=== PATIENT | male | born 1930 | race Caucasian/White ===

== ENCOUNTER 2016-12-23 10:52 | Inpatient (IN) | payer OTHER, MEDICARE ==
[2016-12-23] VITALS (12 sets, daily range): BP systolic 131–184; BP diastolic 64–90; PULSE 31–37; RESP 16–18; TEMP 97.5–98.1; O2SAT 96–100
[~2016-12-23] VITALS: Ht 182.9 cm; Wt 86.1 kg
[~2016-12-23 10:52] MED LIST: AMLO5 PO; APIX5 PO; ASPI81TA11 PO; COQ130CA4 PO; FURO20 PO; IMDU60TA PO; KCL10 PO; LISI-363 PO; METO50CR PO; PRAV40 PO; VITATAB11 PO; [UNRECOGNIZED DRUG - REMARK]
[2016-12-23] MEDS ORDERED: VITATAB11 (11:26)
[2016-12-23] MEDS ORDERED: LATA0.002 EACH EYE (11:26)
[2016-12-23] MEDS ORDERED: FURO20TA PO (11:26)
[2016-12-23] MEDS ORDERED: XARE20TA PO (11:26)
[2016-12-23] MEDS ORDERED: ISOS60TA PO (11:26)
[2016-12-23] MEDS ORDERED: LISI-515 PO (11:26)
[2016-12-23] MEDS ORDERED: LOVA40TA PO (11:26)
[2016-12-23] MEDS ORDERED: COQ-30CA2 PO (11:26)
[2016-12-23] MEDS ORDERED: METO50TA11 PO (11:26)
--- NOTE | 2016-12-23 11:41 | PD ---
HPI Chief Complaint: Cardiac Complaint Time Seen by Provider: 11:15 Travel History International Travel<30 days: No Contact w/Intl Traveler<30days: No Traveled to known affect area: No History of Present Illness HPI 85yo M with PMH of CAD s/p CABG, afib on xarelto was sent here by his PMD for bradycardia. Pt went to his PMD for routine check up and heart rate was 31. Pt 's pals specialist is Dr. Gross and had afib with slow ventricular rate in the 40s last year. Pt denies any fever, cough, chest pain, sob, n/v, abdominal pain , focal weakness or numbness. Pt's only new medication was latanoprost opth drops 2 weeks ago. Pt is on metoprolol 50mg daily and took it this morning. PFSH Past Medical History Hx Anticoagulant Therapy: Yes (xarelto) Arthritis: Yes Blood Disorders: No Cancer: Yes (skin cancer) Cardiac Catheterization: Yes Cardiovascular Problems: Yes (bypass; htn) High Cholesterol: No Chest Pain: Yes Coronary Artery Disease: Yes Diabetes: No Diminished Hearing: Yes Endocrine: No Gastrointestinal Disorders: Yes (gerd,inguinal hernia) GERD: Yes Genitourinary: No Hypertension: Yes Immune Disorder: No Implanted Vascular Access Dvce: Yes Musculoskeletal: Yes Neurologic: No Psychiatric: No Reproductive: No Respiratory: No Tetanus Vaccination: > 5 Years Influenza Vaccination: Yes Past Surgical History Cardiac Surgery: Yes (CABG) Joint Replacement: Yes (bilateral hips) Tonsillectomy: Yes Other Surgery: Yes Social History Alcohol Use: Yes (OCCASSIONAL WINE) Tobacco Use: No Substance Use: No Allergies-Medications (Allergen,Severity, Reaction): Coded Allergies: No Known Allergies (Verified , 12/23/16) Reported Meds & Prescriptions Reported Meds & Active Scripts Active Reported Vitamin B Complex (B-Complex Vitamins) 1 Tab Xarelto (Rivaroxaban) 20 Mg Tab 20 Mg PO DAILY Metoprolol Succinate ER 24 HR (Metoprolol Succinate) 50 Mg Tab 50 Mg PO DAILY Lovastatin 40 Mg Tab 40 Mg PO DAILY Lisinopril 20 Mg Tab 20 Mg PO DAILY Latanoprost Opth Drops (Latanoprost) 0.005% Drops 1 Drop EACH EYE HS Refrigerate until opened. Isosorbide Mononitrate ER (Isosorbide Mononitrate) 60 Mg Tab 60 Mg PO DAILY Furosemide 20 Mg Tab 20 Mg PO DAILY Coq-10 (Coenzyme Q10 (Ubidecarenone)) 30 Mg Cap 10 Mg PO DAILY Review of Systems Except as stated in HPI: all other systems reviewed are Neg Physical Exam Narrative GENERAL: 85yo M not in distress. SKIN: Focused skin assessment warm/dry. HEAD: Atraumatic. Normocephalic. EYES: Pupils equal and round. No scleral icterus. No injection or drainage. ENT: No nasal bleeding or discharge. Mucous membranes pink and moist. NECK: Trachea midline. No JVD. CARDIOVASCULAR: HR 32bpm. Irregular. No murmur. RESPIRATORY: No accessory muscle use. Clear to auscultation. Breath sounds equal bilaterally. GASTROINTESTINAL: Abdomen soft, non-tender, nondistended. MUSCULOSKELETAL: No obvious deformities. No clubbing. No cyanosis. +Bilateral lower ext edema. NEUROLOGICAL: Awake and alert. No obvious cranial nerve deficits. Motor grossly within normal limits. Normal speech. PSYCHIATRIC: Appropriate mood and affect; insight and judgment normal. Data Data Last Documented VS Vital Signs Date Time Temp Pulse Resp B/P Pulse Ox O2 Delivery O2 Flow Rate FiO2 12/23/16 11:13 32 18 100 Room Air 12/23/16 10:54 97.5 184/83 Orders Complete Blood Count With Diff (12/23/16 11:32) Basic Metabolic Panel (Bmp) (12/23/16 11:32) Potassium Chloride (Kcl) (12/23/16 12:45) Magnesium (Mg) (12/23/16 12:36) Place In Observation (12/23/16 ) Code Status (12/23/16 12:55) Vital Signs (Adult) Q4H (12/23/16 12:55) Activity Oob With Assistance (12/23/16 12:55) Traffic Control Supervisor / Telemetry .CONTINUOUS (12/23/16 12:55) Diet Heart Healthy (12/23/16 Lunch) Sodium Chloride 0.9% Flush (Ns Flush) (12/23/16 13:00) Sodium Chloride 0.9% Flush (Ns Flush) (12/23/16 21:00) Acetaminophen (Tylenol) (12/23/16 13:00) Ondansetron Inj (Zofran Inj) (12/23/16 13:00) Basic Metabolic Panel (Bmp) (12/24/16 06:00) Case Management Consult (12/23/16 12:55) Scd Bilateral/Knee High ERIN.BID (12/23/16 12:55) Chago Bilateral/Knee High ERIN.QSHIFT (12/23/16 12:55) Acetaminophen (Tylenol) (12/23/16 13:00) Naloxone Inj (Narcan Inj) (12/23/16 13:00) Admit Order (Ed Use Only) (12/23/16 12:57) Labs Laboratory Tests Test 12/23/16 11:20 White Blood Count 5.5 TH/MM3 Red Blood Count 4.22 MIL/MM3 Hemoglobin 13.3 GM/DL Hematocrit 39.2 % Mean Corpuscular Volume 93.0 FL Mean Corpuscular Hemoglobin 31.4 PG Mean Corpuscular Hemoglobin 33.8 % Concent Red Cell Distribution Width 14.5 % Platelet Count 136 TH/MM3 Mean Platelet Volume 9.9 FL Neutrophils (%) (Auto) 66.6 % Lymphocytes (%) (Auto) 19.7 % Monocytes (%) (Auto) 8.9 % Eosinophils (%) (Auto) 3.6 % Basophils (%) (Auto) 1.2 % Neutrophils # (Auto) 3.7 TH/MM3 Lymphocytes # (Auto) 1.1 TH/MM3 Monocytes # (Auto) 0.5 TH/MM3 Eosinophils # (Auto) 0.2 TH/MM3 Basophils # (Auto) 0.1 TH/MM3 CBC Comment DIFF FINAL Differential Comment Sodium Level 140 MEQ/L Potassium Level 3.3 MEQ/L Chloride Level 101 MEQ/L Carbon Dioxide Level 27.5 MEQ/L Anion Gap 12 MEQ/L Blood Urea Nitrogen 13 MG/DL Creatinine 1.18 MG/DL Estimat Glomerular Filtration 59 ML/MIN Rate Random Glucose 147 MG/DL Calcium Level 8.6 MG/DL Magnesium Level 2.1 MG/DL MDM Medical Decision Making Medical Screen Exam Complete: Yes Emergency Medical Condition: Yes Interpretation(s) EKG: Afib at 32bpm. LAD. Differential Diagnosis Afib with low ventricular rate vs. beta yelitza toxicity vs. electrolyte abnormality Narrative Course 85yo M with bradycardia in the low 30s. This is lower than his usual rate. I discussed with Dr. Gross who recommends monitoring him overnight and holding his beta yelitza. Recommend to consult cardiology if he does not get better. Labs reviewed, no leukocytosis. K: 3.3, replaced orally with 40mEq KCl. Added magnesium. Discussed with Dr. Rojas and accepted to his care. Critical Care Narrative Aggregate critical care time was 40 minutes. Time to perform other separately billable procedures was not included in the critical care time. My time did not include minutes spent treating any other patients simultaneously or on activities that did not directly contribute to the patient's treatment. The services I provided to this patient were to treat and/or prevent clinically significant deterioration that could result in: cardiovascular collapse or . I provided critical care services requiring my management, as noted below: Chart data review, documentation time, medication orders and management, vital sign assessments/reviewing monitor data, ordering and reviewing lab tests, ordering and interpreting/reviewing x-rays and diagnostic studies, care of the patient and discussion of the patient with the admitting physicians. Diagnosis Primary Impression: Bradycardia Admitting Information Admitting Physician Requests: Destinee Benítez DO December 23, 2016 11:40
[2016-12-23 12:05] LABS: AUTOMATED NEUTROPHIL # 3.7 TH/MM3 (1.8-7.7); BASOPHIL # 0.1 TH/MM3 (0-0.2); BASOPHIL % 1.2 % (0.0-2.0); EOSINOPHIL # 0.2 TH/MM3 (0-0.4); EOSINOPHIL % 3.6 % (0.0-4.0); HEMATOCRIT 39.2 % (39.0-51.0); HEMO FLAGS DIFF FINAL; LYMPH % 19.7 % (9.0-44.0); LYMPHOCYTE # 1.1 TH/MM3 (1.0-4.8); MEAN CORPUSCULAR HEMOGLOBIN 31.4 PG (27.0-34.0); MEAN CORPUSCULAR HGB CONC 33.8 % (32.0-36.0); MONO % 8.9 % (0.0-8.0); NEUT % 66.6 % (16.0-70.0); PLATELET COUNT 136 TH/MM3 (150-450); RED BLOOD COUNT 4.22 MIL/MM3 (4.50-5.90); RED CELL DISTRIBUTION WIDTH 14.5 % (11.6-17.2); WHITE BLOOD COUNT 5.5 TH/MM3 (4.0-11.0)
[2016-12-23 12:17] LABS: BICARBONATE 27.5 MEQ/L (21.0-32.0); POTASSIUM 3.3 MEQ/L (3.5-5.1)
[2016-12-23] MEDS ORDERED: POTASSIUM CHLORIDE 20 MEQ CONTROLLED RELEASE TAB PO ONE (12:45)
[2016-12-23] MEDS ORDERED: NALOXONE HCL 0.4 MG/ML AMP IV PRN (13:00)
[2016-12-23] MEDS ORDERED: SODIUM CHLORIDE 0.9% FLUSH 10 ML FLUSH IV FLUSH PRN (13:00)
[2016-12-23] MEDS ORDERED: ACETAMINOPHEN 325 MG TAB PO PRN ×2 (13:00)
[2016-12-23] MEDS ORDERED: ONDANSETRON HCL 4 MG/2 ML VIAL IVP PRN (13:00)
--- NOTE | 2016-12-23 13:44 | HHI.HP ---
[facility], [place] Primary Care Physician Rosendo Brown MD Admission Diagnosis Bradycardia Diagnoses: (1) Bradycardia Chief Complaint: HR into the 30's Travel History International Travel<30 Days: No Contact w/Intl Traveler <30 Da: No Traveled to Known Affected Are: No History of Present Illness 85-year-old male with known history of CAD status post CABG who in his regular office visit with his PCP was noted to have Heart rate was around 30s. Patient is on beta yelitza and was also started on an eye drop within the past few weeks. He was sent over to the ED by PCP for further evaluation. He denies any chest pain, shortness of breath or heart palpitation. He has no GI bleed. Review of Systems Other 12 systems reviewed and are negative except for the one mentioned in history of present illness Past Family Social History Past Medical History CAD status post CABG in 1992 Hypertension Hyperlipidemia Past Surgical History Status post CABG in 1992 Bilateral hip replacement left, right in 1999 and 2000. Reported Medications Vitamin B Complex (B-Complex Vitamins) 1 Tab Xarelto (Rivaroxaban) 20 Mg Tab 20 Mg PO DAILY Metoprolol Succinate ER 24 HR (Metoprolol Succinate) 50 Mg Tab 50 Mg PO DAILY Lovastatin 40 Mg Tab 40 Mg PO DAILY Lisinopril 20 Mg Tab 20 Mg PO DAILY Latanoprost Opth Drops (Latanoprost) 0.005% Drops 1 Drop EACH EYE HS Refrigerate until opened. Isosorbide Mononitrate ER (Isosorbide Mononitrate) 60 Mg Tab 60 Mg PO DAILY Furosemide 20 Mg Tab 20 Mg PO DAILY Coq-10 (Coenzyme Q10 (Ubidecarenone)) 30 Mg Cap 10 Mg PO DAILY Allergies: Coded Allergies: No Known Allergies (Verified , 12/23/16) Family History Not relevant secondary to patient's age Social History Alcohol Use: Yes (OCCASSIONAL WINE) Tobacco Use: No Substance Use: No Physical Exam Vital Signs Vital Signs Date Time Temp Pulse Resp B/P Pulse Ox O2 Delivery O2 Flow Rate FiO2 12/23/16 13:09 31 18 167/75 98 Room Air 12/23/16 11:13 32 18 100 Room Air 12/23/16 10:54 97.5 32 18 184/83 99 Physical Exam GENERAL: This is a well-nourished, well-developed patient, in no apparent distress. SKIN: No rashes, ecchymoses or lesions. Cool and dry. HEAD: Atraumatic. Normocephalic. No temporal or scalp tenderness. EYES: Pupils equal round and reactive. Extraocular motions intact. No scleral icterus. No injection or drainage. ENT: Nose without bleeding, purulent drainage or septal hematoma. Throat without erythema, tonsillar hypertrophy or exudate. Uvula midline. Airway patent. NECK: Trachea midline. No JVD or lymphadenopathy. Supple, nontender, no meningeal signs. CARDIOVASCULAR: Regular rate and rhythm without murmurs, gallops, or rubs. RESPIRATORY: Clear to auscultation. Breath sounds equal bilaterally. No wheezes , rales, or rhonchi. GASTROINTESTINAL: Abdomen soft, non-tender, nondistended. No hepato-splenomegaly , or palpable masses. No guarding. MUSCULOSKELETAL: Extremities without clubbing, cyanosis, or edema. No joint tenderness, effusion, or edema noted. No calf tenderness. Negative Homans sign bilaterally. NEUROLOGICAL: Awake and alert. Cranial nerves II through XII intact. Motor and sensory grossly within normal limits. Five out of 5 muscle strength in all muscle groups. Normal speech. Laboratory Laboratory Tests Test 12/23/16 11:20 White Blood Count 5.5 Red Blood Count 4.22 Hemoglobin 13.3 Hematocrit 39.2 Mean Corpuscular Volume 93.0 Mean Corpuscular Hemoglobin 31.4 Mean Corpuscular Hemoglobin 33.8 Concent Red Cell Distribution Width 14.5 Platelet Count 136 Mean Platelet Volume 9.9 Neutrophils (%) (Auto) 66.6 Lymphocytes (%) (Auto) 19.7 Monocytes (%) (Auto) 8.9 Eosinophils (%) (Auto) 3.6 Basophils (%) (Auto) 1.2 Neutrophils # (Auto) 3.7 Lymphocytes # (Auto) 1.1 Monocytes # (Auto) 0.5 Eosinophils # (Auto) 0.2 Basophils # (Auto) 0.1 CBC Comment DIFF FINAL Differential Comment Sodium Level 140 Potassium Level 3.3 Chloride Level 101 Carbon Dioxide Level 27.5 Anion Gap 12 Blood Urea Nitrogen 13 Creatinine 1.18 Estimat Glomerular Filtration 59 Rate Random Glucose 147 Calcium Level 8.6 Magnesium Level 2.1 Result Diagram: 12/23/16 1120 12/23/16 1120 Assessment and Plan Problem List: (1) Bradycardia ICD Code: R00.1 Status: Acute Assessment and Plan 85-year-old man with Bradycardia Like a secondary to medication side effect Hold beta yelitza and Latanoprost eye drops Telemetry monitoring Consider cardiology consultation if no improvement Hypertension Resume other oral antihypertensive medication except beta yelitza History of atrial fibrillation Continue oral anticoagulation DVT prophylaxis Xarelto Code Status Full code Discussed Condition With Patient, ED physician Dmitriy Rojas MD December 23, 2016 13:43
[2016-12-23] MEDS: SODIUM CHLORIDE 0.9% FLUSH 10 ML FLUSH IV FLUSH SCH (21:42)
[2016-12-24] VITALS (26 sets, daily range): BP systolic 150–178; BP diastolic 53–84; PULSE 27–35; RESP 18–20; TEMP 97.5–98.3; O2SAT 94–97
[2016-12-24 06:08] LABS: BICARBONATE 30.2 MEQ/L (21.0-32.0); POTASSIUM 3.4 MEQ/L (3.5-5.1)
[2016-12-24] MEDS ORDERED: ISOSORBIDE MONONITRATE 60 MG TAB PO SCH (07:00)
[2016-12-24] MEDS: FUROSEMIDE 20 MG TAB PO SCH ×2 (08:10→12:41)
[2016-12-24] MEDS: LISINOPRIL 20 MG TAB PO SCH (08:10)
[2016-12-24] MEDS: RIVAROXABAN 20 MG TAB PO SCH (08:10)
[2016-12-24] MEDS: PRAVASTATIN SOD 40 MG TAB PO SCH (08:11)
[2016-12-24] MEDS: SODIUM CHLORIDE 0.9% FLUSH 10 ML FLUSH IV FLUSH SCH ×2 (08:11→21:00)
--- NOTE | 2016-12-24 09:34 | PD.CONS ---
HPI Service Cardiology Consult Requested By Hospitalist Reason for Consult Bradycardia Primary Care Physician Rosendo Brown MD History of Present Illness 85 y/o M with pmhx significant for CAD s/p CABG, HTN, HLD and atrial fibrillation on chronic oral anticoagulation and beta blockers referred by PCP to the ER for evaluation of slow heart rate. Patient reports fatigue on exertion, denies chest pain, SOB, palpitations, syncope or presyncope. Cardiology consulted for evaluation and management. ECHO done today shows preserved LV systolic function. Last LHC done 2011 shows severe [place] vessel CAD patent RCA, occluded grafts and patent GUTIERREZ to LAD. Review of Systems Consitutional: DENIES: Fatigue, Fever, Chills, Weight gain, Weight loss Eyes: DENIES: Amaurosis Fugax, Change in vision HEENT: DENIES: Lightheadedness, Change in hearing Respiratory: DENIES: See HPI, Cough, Snoring, Shortness of breath, Wheezing, Sputum production Cardiovascular: DENIES: See HPI, Chest pain, Palpitations, Syncope, Tachycardia Gastrointestinal: DENIES: Nausea, Vomiting, Change in bowel habits, Reflux, Bloody stools, Melena Genitourinary: DENIES: Urinary incontinence, Difficulty voiding Integumentary: DENIES: Rash Neurologic: DENIES: Tingling or numbness, Memory problems, Poor Balance, Stroke symptoms Musculoskeletal: DENIES: Joint pain, Muscle pain, Limited range of motion, Back pain Psychiatric: DENIES: Anxiety, Depression, Sleep disturbances Hematologic: DENIES: Bruising tendencies, Bleeding tendencies Endocrine: DENIES: Weight gain, Weight loss, Thyroid disease Past Family Social History Allergies: Coded Allergies: No Known Allergies (Verified , 12/23/16) Past Medical History CAD status post CABG in 1992 Hypertension Hyperlipidemia Past Surgical History Status post CABG in 1992 Bilateral hip replacement left, right in 1999 and 2000. Reported Medications Reported Meds & Active Scripts Active Reported Vitamin B Complex (B-Complex Vitamins) 1 Tab Xarelto (Rivaroxaban) 20 Mg Tab 20 Mg PO DAILY Metoprolol Succinate ER 24 HR (Metoprolol Succinate) 50 Mg Tab 50 Mg PO DAILY Lovastatin 40 Mg Tab 40 Mg PO DAILY Lisinopril 20 Mg Tab 20 Mg PO DAILY Latanoprost Opth Drops (Latanoprost) 0.005% Drops 1 Drop EACH EYE HS Refrigerate until opened. Isosorbide Mononitrate ER (Isosorbide Mononitrate) 60 Mg Tab 60 Mg PO DAILY Furosemide 20 Mg Tab 20 Mg PO DAILY Coq-10 (Coenzyme Q10 (Ubidecarenone)) 30 Mg Cap 10 Mg PO DAILY Active Ordered Medications Current Medications Medications (Trade) Dose Ordered Sig/Khai Route Start Time Stop Time Status Last Admin (NS Flush) 2 ml UNSCH PRN IV FLUSH 12/23/16 13:00 (NS Flush) 2 ml BID IV FLUSH 12/23/16 21:00 12/24/16 08:11 (Tylenol) 650 mg Q4H PRN PO 12/23/16 13:00 (Zofran Inj) 4 mg Q6H PRN IVP 12/23/16 13:00 (Tylenol) 650 mg Q6H PRN PO 12/23/16 13:00 (Narcan Inj) 0.4 mg UNSCH PRN IV 12/23/16 13:00 (Lasix) 20 mg DAILY PO 12/24/16 09:00 (Imdur) 60 mg DAILY@07 PO 12/24/16 07:00 Hold (Prinivil) 20 mg DAILY PO 12/24/16 09:00 12/24/16 08:10 (Pravachol) 40 mg DAILY PO 12/24/16 09:00 12/24/16 08:11 (Xarelto) 20 mg DAILY PO 12/24/16 09:00 12/24/16 08:10 Family History Non-contributory Social History No alcohol No smoking No illicit drug use Physical Exam Vital Signs Vital Signs Date Time Temp Pulse Resp B/P Pulse Ox O2 Delivery O2 Flow Rate FiO2 12/24/16 06:21 28 12/24/16 05:04 28 12/24/16 04:18 27 12/24/16 03:30 27 12/24/16 03:30 97.8 29 20 158/59 94 12/24/16 02:12 29 12/24/16 01:28 31 12/24/16 00:13 33 12/23/16 23:50 97.7 31 18 153/73 96 12/23/16 23:00 31 12/23/16 22:00 32 12/23/16 21:00 37 12/23/16 20:05 33 12/23/16 19:30 34 12/23/16 19:20 98.1 34 16 180/90 96 12/23/16 18:06 35 18 181/80 97 Room Air 12/23/16 15:20 33 18 131/64 99 Room Air 12/23/16 14:19 31 18 160/76 100 Room Air 12/23/16 13:09 31 18 167/75 98 Room Air 12/23/16 11:13 32 18 100 Room Air 12/23/16 10:54 97.5 32 18 184/83 99 Physical Exam GENERAL: Well-nourished, well-developed patient. SKIN: Warm and dry. HEAD: Normocephalic. EYES: No scleral icterus. No injection or drainage. NECK: Supple, trachea midline. No JVD or lymphadenopathy. CARDIOVASCULAR: Slow heart rate, irregular no murmurs, gallops, or rubs. RESPIRATORY: Breath sounds equal bilaterally. No accessory muscle use. GASTROINTESTINAL: Abdomen soft, non-tender, nondistended. EXTREMITIES: No cyanosis, or edema. NEUROLOGICAL: Awake, alert, and oriented x 3. Non-focal. Laboratory Laboratory Tests Test 12/23/16 12/24/16 11:20 05:08 White Blood Count 5.5 Red Blood Count 4.22 Hemoglobin 13.3 Hematocrit 39.2 Mean Corpuscular Volume 93.0 Mean Corpuscular Hemoglobin 31.4 Mean Corpuscular Hemoglobin 33.8 Concent Red Cell Distribution Width 14.5 Platelet Count 136 Mean Platelet Volume 9.9 Neutrophils (%) (Auto) 66.6 Lymphocytes (%) (Auto) 19.7 Monocytes (%) (Auto) 8.9 Eosinophils (%) (Auto) 3.6 Basophils (%) (Auto) 1.2 Neutrophils # (Auto) 3.7 Lymphocytes # (Auto) 1.1 Monocytes # (Auto) 0.5 Eosinophils # (Auto) 0.2 Basophils # (Auto) 0.1 CBC Comment DIFF FINAL Differential Comment Sodium Level 140 140 Potassium Level 3.3 3.4 Chloride Level 101 102 Carbon Dioxide Level 27.5 30.2 Anion Gap 12 8 Blood Urea Nitrogen 13 13 Creatinine 1.18 0.90 Estimat Glomerular Filtration 59 80 Rate Random Glucose 147 103 Calcium Level 8.6 8.7 Magnesium Level 2.1 Result Diagram: 12/23/16 1120 12/24/16 0508 Imaging Assessment and Plan Problem List: (1) New onset atrial fibrillation Assessment and Plan: Slow atrial fibrillation/high degree AV block ?medication induce vs progression of conduction disease. No CV complaints and hemodynamically stable. Beta Blockers on Hold. Continue telemetry monitoring for the next 24hrs, if AV block continues will need a PPM. Recommendations: 1. Toxicology screen 2. Digoxin level 3. F/U 2 Echo results 4. TSH, free T3 and T4 5. Cont Telemetry monitoring 6. No AV blocking agents 7. Cycle cardiac markers x3 Q6H 8. Cont OAC Thank you for the opportunity to participate in the care of this patient Further therapy to be determine (2) Bradycardia Terrance Busby MD December 24, 2016 09:34
--- NOTE | 2016-12-24 10:19 | HHI.PR ---
Subjective Remarks Follow-up bradycardia 12/24/16-patient seen and examined, heart rate in the high 20s over patient denies any lightheadedness, shortness of breath or chest pain. Objective Vitals Vital Signs Date Time Temp Pulse Resp B/P Pulse Ox O2 Delivery O2 Flow Rate FiO2 12/24/16 06:21 28 12/24/16 05:04 28 12/24/16 04:18 27 12/24/16 03:30 27 12/24/16 03:30 97.8 29 20 158/59 94 12/24/16 02:12 29 12/24/16 01:28 31 12/24/16 00:13 33 12/23/16 23:50 97.7 31 18 153/73 96 12/23/16 23:00 31 12/23/16 22:00 32 12/23/16 21:00 37 12/23/16 20:05 33 12/23/16 19:30 34 12/23/16 19:20 98.1 34 16 180/90 96 12/23/16 18:06 35 18 181/80 97 Room Air 12/23/16 15:20 33 18 131/64 99 Room Air 12/23/16 14:19 31 18 160/76 100 Room Air 12/23/16 13:09 31 18 167/75 98 Room Air 12/23/16 11:13 32 18 100 Room Air 12/23/16 10:54 97.5 32 18 184/83 99 I/O 12/23/16 12/23/16 12/23/16 12/24/16 12/24/16 12/24/16 07:00 15:00 23:00 07:00 15:00 23:00 Intake Total 480 ml Output Total 300 ml 200 ml 450 ml Balance -300 ml -200 ml 30 ml Intake Oral 480 ml Output Urine Total 300 ml 200 ml 450 ml # Voids 1 1 2 # Bowel Movements 0 Result Diagram: 12/23/16 1120 12/24/16 0508 Objective Remarks GENERAL: NAD SKIN: Warm and dry. HEAD: Normocephalic. EYES: No scleral icterus. No injection or drainage. NECK: Supple, trachea midline. No JVD or lymphadenopathy. CARDIOVASCULAR: Regular rate and rhythm without murmurs, gallops, or rubs. RESPIRATORY: Breath sounds equal bilaterally. No accessory muscle use. GASTROINTESTINAL: Abdomen soft, non-tender, nondistended. MUSCULOSKELETAL: No cyanosis, or edema. BACK: Nontender without obvious deformity. No CVA tenderness. A/P Problem List: (1) Bradycardia ICD Code: R00.1 Status: Acute (2) Afib ICD Code: I48.91 Status: Chronic Assessment and Plan 85-year-old man with Bradycardia Heart rate 28 Like a secondary to medication side effect Continue to Hold beta yelitza and Latanoprost eye drops Telemetry monitoring Consult cardiology and check 2-D echo 12/24/16 Hypokalemia Give potassium 60 mEq 1 now, recheck BMP in a.m. Hypertension Continue other oral antihypertensive medication except beta yelitza History of atrial fibrillation Continue oral anticoagulation DVT prophylaxis Dmitriy Hogan MD December 24, 2016 10:19
[2016-12-24] MEDS ORDERED: POTASSIUM CHLORIDE 20 MEQ CONTROLLED RELEASE TAB PO ONE (11:00)
--- NOTE | 2016-12-24 13:56 | EC ---
Study Study Date:12/24/2016 STUDY CONCLUSIONS SUMMARY - Left ventricle: The cavity size was normal. Wall thickness was normal. Systolic function was normal. The estimated ejection fraction was in the range of 55% to 60%. Wall motion was normal; there were no regional wall motion abnormalities. - Aortic valve: Valve area: 2.18cm^2(VTI). Valve area: 2.09cm^2 (Vmax). - Mitral valve: Mildly calcified annulus. Mild to moderate regurgitation. - Tricuspid valve: Moderate regurgitation. - Pulmonary arteries: PA peak pressure: 65mm Hg (S). If LV function is below 40, please consider prescribing an ACEI or ARB or document rationale for non-use. PROCEDURE DATA STUDY STATUS: Elective. Procedure: Transthoracic echocardiography. Image quality was good. Scanning was performed from the parasternal, apical, and subcostal acoustic windows. Study completion: The patient tolerated the procedure well. Transthoracic echocardiography. M-mode, complete 2D, complete spectral Doppler, and color Doppler. Height: Height: 72in. Weight: Weight: 189.6lb. Body mass index: BMI: 25.8kg/m^2. Body surface area: BSA: 2.08m^2. Patient status: Inpatient. CARDIAC ANATOMY LEFT VENTRICLE: The cavity size was normal. Wall thickness was normal. Systolic function was normal. The estimated ejection fraction was in the range of 55% to 60%. Wall motion was normal; there were no regional wall motion abnormalities. AORTIC VALVE: Trileaflet; mildly thickened leaflets. Doppler: Transvalvular velocity was within the normal range. There was no stenosis. No regurgitation. Valve area: 2.18cm^2(VTI). Indexed valve area: 1.05cm^2/m^2 (VTI). Valve area: 2.09cm^2 (Vmax). Indexed valve area: 1cm^2/m^2 (Vmax). Mean gradient: 7mm Hg (S). Peak gradient: 14mm Hg (S). AORTA: Aortic root: The aortic root was normal in size. MITRAL VALVE: Mildly calcified annulus. Doppler: Transvalvular velocity was within the normal range. There was no evidence for stenosis. Mild to moderate regurgitation. Peak gradient: 7mm Hg (D). LEFT ATRIUM: severely enlarged The atrium was normal in size. RIGHT VENTRICLE: The cavity size was normal. Wall thickness was normal. PULMONIC VALVE: Doppler: Transvalvular velocity was within the normal range. There was no evidence for stenosis. No regurgitation. TRICUSPID VALVE: Structurally normal valve. Doppler: Transvalvular velocity was within the normal range. Moderate regurgitation. PULMONARY ARTERY: The main pulmonary artery was normal-sized. Systolic pressure was within the normal range. RIGHT ATRIUM: The atrium was normal in size. PERICARDIUM: There was no pericardial effusion. SYSTEMIC VEINS: Inferior vena cava: The vessel was normal in size. Patient weight: 189.6lb _Ejection fraction:_ 65-75% _Fractional shortening:_ 32% up to 5Kg 5-11.5Kg 11.6-22.9Kg 23-45Kg 45-57Kg Aortic Root 7-13 <17 13-22 17-27 17-27 LA diam 6-13 <23 24-38 33-47 37-40 RVID 10-17 7-15 7-15 7-18 8-17 LVIDd 12-22 <32 24-38 33-47 37-40 LVPW 2-4 3-6 5-7 6-8 7-8 IVS 2-4 3-6 5-7 6-8 7-8 BASIC MEASUREMENTS ADULT NORMAL Left ventricle LV internal dimension, ED, chordal *53.8 mm 43-52 level, PLAX LV internal dimension, ES, chordal *38.3 mm 23-38 level, PLAX Fractional shortening, chordal level, *29 % >29 PLAX LV posterior wall thickness, ED 8.76 mm IVS/LVPW ratio, ED 1.18 <1.3 Ventricular septum Septal thickness, ED 10.3 mm Aortic valve Leaflet separation 20 mm 15-26 Aorta Root diameter, ED 33 mm Left atrium Anterior-posterior dimension 51 mm Anterior-posterior dimension index *2.45 cm/m^2 <2.2 BASIC MEASUREMENTS ADULT NORMAL Aortic valve Leaflet separation 20 mm 15-26 DOPPLER MEASUREMENTS ADULT NORMAL Main pulmonary artery Pressure, S *65 mm Hg =30 Aortic valve Peak velocity, S 187 cm/s Mean velocity, S 120 cm/s VTI, S 42.3 cm Mean gradient, S 7 mm Hg Peak gradient, S 14 mm Hg Valve area, VTI 2.18 cm^2 Valve area index, VTI 1.05 cm^2/m^2 Valve area, Vmax 2.09 cm^2 Valve area index, Vmax 1 cm^2/m^2 Mitral valve Peak E-wave velocity 130 cm/s Deceleration time *148 ms 150-230 Peak gradient, D 7 mm Hg Tricuspid valve Regurgitant peak velocity 379 cm/s Peak RV-RA gradient, S 57 mm Hg Maximal regurgitant velocity 379 cm/s Systemic veins Estimated CVP 10 mm Hg Right ventricle RV pressure, S *67 mm Hg <30 Pulmonic valve Peak velocity, S 68.4 cm/s LEGEND: Mean values are shown as u=mean value. Asterisk (*) emery values outside specified normal range. Prepared and signed by Philip Mei [id number]
[2016-12-24 14:18] LABS: CREATINE KINASE 153 U/L (39-308)
[2016-12-24 14:30] LABS: CKMB 2.9 NG/ML (0.5-3.6)
--- NOTE | 2016-12-24 16:20 | EKG ---
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
[2016-12-24] MEDS: amLODIPine BESYLATE 5 MG TAB PO SCH (17:22)
[2016-12-24 18:49] LABS: ALKALINE PHOSPHATASE 103 U/L (45-117); ALT (GPT) 21 U/L (12-78); AST (GOT) 39 U/L (15-37); CREATINE KINASE 143 U/L (39-308); DIGOXIN LESS THAN 0.1 NG/ML (0.8-2.0); HDL CHOLESTEROL 40.8 MG/DL (40.0-60.0); INDIRECT BILIRUBIN 0.7 MG/DL (0.0-0.8); LDL CHOLESTEROL 40 MG/DL (0-99); TOTAL BILIRUBIN ADULT 1.5 MG/DL (0.2-1.0)
[2016-12-24 19:01] LABS: CKMB 2.6 NG/ML (0.5-3.6)
[2016-12-25] VITALS (30 sets, daily range): BP systolic 134–169; BP diastolic 62–77; PULSE 28–36; RESP 18–20; TEMP 97.7–98.4; O2SAT 92–97
[2016-12-25 01:25] LABS: ANION GAP 9 MEQ/L (5-15); BLOOD UREA NITROGEN 11 MG/DL (7-18); CHLORIDE 105 MEQ/L (98-107); GLOMERULAR FILTRATION RATE 87 ML/MIN (>89); SODIUM (NA) 141 MEQ/L (136-145)
[2016-12-25 01:28] LABS: CREATINE KINASE 120 U/L (39-308)
[2016-12-25 01:41] LABS: CKMB 2.5 NG/ML (0.5-3.6)
[2016-12-25] MEDS: PRAVASTATIN SOD 40 MG TAB PO SCH (08:04)
[2016-12-25] MEDS: amLODIPine BESYLATE 5 MG TAB PO SCH (08:04)
[2016-12-25] MEDS: RIVAROXABAN 20 MG TAB PO SCH (08:04)
[2016-12-25] MEDS: SODIUM CHLORIDE 0.9% FLUSH 10 ML FLUSH IV FLUSH SCH ×2 (08:04→20:15)
[2016-12-25] MEDS: FUROSEMIDE 20 MG TAB PO SCH (08:04)
[2016-12-25] MEDS: LISINOPRIL 20 MG TAB PO SCH (08:04)
--- NOTE | 2016-12-25 11:00 | HHI.PR ---
Subjective Remarks Follow-up bradycardia 12/24/16-patient seen and examined, heart rate in the high 20s over patient denies any lightheadedness, shortness of breath or chest pain. 12/25/16-patient seen and examined, heart rate currently 31, BP normotensive, patient denies any chest pain, heart palpitation or shortness of breath. Objective Vitals Vital Signs Date Time Temp Pulse Resp B/P Pulse Ox O2 Delivery O2 Flow Rate FiO2 12/25/16 06:33 29 12/25/16 05:04 29 12/25/16 04:00 28 12/25/16 03:59 98.4 33 134/62 92 12/25/16 03:00 28 12/25/16 02:00 30 12/25/16 01:00 30 12/25/16 00:00 30 12/24/16 23:00 97.9 30 151/53 95 12/24/16 23:00 35 12/24/16 22:00 30 12/24/16 21:00 32 12/24/16 20:00 32 12/24/16 19:00 33 12/24/16 19:00 98.3 33 150/84 96 12/24/16 17:01 33 12/24/16 16:00 33 12/24/16 15:45 98.0 33 18 176/70 95 12/24/16 15:00 33 12/24/16 14:00 32 12/24/16 13:01 32 12/24/16 12:00 32 12/24/16 11:30 97.8 35 18 172/74 94 12/24/16 11:00 30 I/O 12/24/16 12/24/16 12/24/16 12/25/16 12/25/16 12/25/16 06:59 14:59 22:59 06:59 14:59 22:59 Intake Total 480 ml 720 ml 240 ml Output Total 450 ml 650 ml 700 ml Balance 30 ml 70 ml -460 ml Intake Oral 480 ml 720 ml 240 ml Output Urine Total 450 ml 650 ml 700 ml # Voids 2 4 # Bowel Movements 0 1 Result Diagram: 12/23/16 1120 12/25/16 0000 Objective Remarks GENERAL: NAD SKIN: Warm and dry. HEAD: Normocephalic. EYES: No scleral icterus. No injection or drainage. NECK: Supple, trachea midline. No JVD or lymphadenopathy. CARDIOVASCULAR: Regular rate and rhythm without murmurs, gallops, or rubs. RESPIRATORY: Breath sounds equal bilaterally. No accessory muscle use. GASTROINTESTINAL: Abdomen soft, non-tender, nondistended. MUSCULOSKELETAL: No cyanosis, or edema. BACK: Nontender without obvious deformity. No CVA tenderness. A/P Problem List: (1) Bradycardia ICD Code: R00.1 Status: Acute (2) Afib ICD Code: I48.91 Status: Chronic Assessment and Plan 85-year-old man with Bradycardia Heart rate 31 Continue to Hold beta yelitza and Latanoprost eye drops Telemetry monitoring 2-D echo with EF 55-60% Appreciate input from cardiology May consider pacemaker placement Hypokalemia-resolved Hypertension Continue other oral antihypertensive medication except beta yelitza Norvasc 5 mg by mouth daily added 12/24/16 History of atrial fibrillation Continue oral anticoagulation DVT prophylaxis Dmitriy Hogan MD December 25, 2016 11:00
--- NOTE | 2016-12-25 11:33 | PD.CARD.PN ---
Subjective Subjective Remarks no overnight events telemetry afib HR 30's and ventricular escape rhythm Asymptomatic No complaints Objective Medications Current Medications Medications (Trade) Dose Ordered Sig/Khai Route Start Time Stop Time Status Last Admin (NS Flush) 2 ml UNSCH PRN IV FLUSH 12/23/16 13:00 (NS Flush) 2 ml BID IV FLUSH 12/23/16 21:00 12/25/16 08:04 (Tylenol) 650 mg Q4H PRN PO 12/23/16 13:00 (Zofran Inj) 4 mg Q6H PRN IVP 12/23/16 13:00 (Tylenol) 650 mg Q6H PRN PO 12/23/16 13:00 (Narcan Inj) 0.4 mg UNSCH PRN IV 12/23/16 13:00 (Lasix) 20 mg DAILY PO 12/24/16 09:00 12/25/16 08:04 (Imdur) 60 mg DAILY@07 PO 12/24/16 07:00 Hold (Prinivil) 20 mg DAILY PO 12/24/16 09:00 12/25/16 08:04 (Pravachol) 40 mg DAILY PO 12/24/16 09:00 12/25/16 08:04 (Xarelto) 20 mg DAILY PO 12/24/16 09:00 12/25/16 08:04 (Norvasc) 5 mg DAILY PO 12/24/16 16:45 12/25/16 08:04 Vital Signs / I&O Vital Signs Date Time Temp Pulse Resp B/P Pulse Ox O2 Delivery O2 Flow Rate FiO2 12/25/16 06:33 29 12/25/16 05:04 29 12/25/16 04:00 28 12/25/16 03:59 98.4 33 134/62 92 12/25/16 03:00 28 12/25/16 02:00 30 12/25/16 01:00 30 12/25/16 00:00 30 12/24/16 23:00 97.9 30 151/53 95 12/24/16 23:00 35 12/24/16 22:00 30 12/24/16 21:00 32 12/24/16 20:00 32 12/24/16 19:00 33 12/24/16 19:00 98.3 33 150/84 96 12/24/16 17:01 33 12/24/16 16:00 33 12/24/16 15:45 98.0 33 18 176/70 95 12/24/16 15:00 33 12/24/16 14:00 32 12/24/16 13:01 32 12/24/16 12:00 32 I/O 12/24/16 12/24/16 12/24/16 12/25/16 12/25/16 12/25/16 07:00 15:00 23:00 07:00 15:00 23:00 Intake Total 480 ml 720 ml 240 ml Output Total 450 ml 650 ml 700 ml Balance 30 ml 70 ml -460 ml Intake Oral 480 ml 720 ml 240 ml Output Urine Total 450 ml 650 ml 700 ml # Voids 2 4 # Bowel Movements 0 1 Physical Exam GENERAL: Well-nourished, well-developed patient. SKIN: Warm and dry. HEAD: Normocephalic. EYES: No scleral icterus. No injection or drainage. NECK: Supple, trachea midline. No JVD or lymphadenopathy. CARDIOVASCULAR: Irr Irr without murmurs, gallops, or rubs. RESPIRATORY: Breath sounds equal bilaterally. No accessory muscle use. GASTROINTESTINAL: Abdomen soft, non-tender, nondistended. EXTREMITIES: No cyanosis, or edema. NEUROLOGICAL: Awake, alert, and oriented x 3. Non-focal. Laboratory Laboratory Tests Test 12/24/16 12/24/16 12/25/16 13:06 18:03 00:00 Total Creatine Kinase 153 U/L 143 U/L 120 U/L Creatine Kinase MB 2.9 NG/ML 2.6 NG/ML 2.5 NG/ML Troponin I 0.20 NG/ML 0.17 NG/ML 0.18 NG/ML Total Bilirubin 1.5 MG/DL Direct Bilirubin 0.8 MG/DL Indirect Bilirubin 0.7 MG/DL Aspartate Amino Transf 39 U/L (AST/SGOT) Alanine Aminotransferase 21 U/L (ALT/SGPT) Alkaline Phosphatase 103 U/L Total Protein 6.5 GM/DL Albumin 2.9 GM/DL Triglycerides Level 36 MG/DL Cholesterol Level 88 MG/DL LDL Cholesterol 40 MG/DL HDL Cholesterol 40.8 MG/DL Cholesterol/HDL Ratio 2.15 RATIO Thyroid Stimulating Hormone 3.380 uIU/ML 3rd Gen Digoxin Level LESS THAN 0.1 NG/ML Sodium Level 141 MEQ/L Potassium Level 4.0 MEQ/L Chloride Level 105 MEQ/L Carbon Dioxide Level 27.0 MEQ/L Anion Gap 9 MEQ/L Blood Urea Nitrogen 11 MG/DL Creatinine 0.84 MG/DL Estimat Glomerular Filtration 87 ML/MIN Rate Random Glucose 96 MG/DL Calcium Level 8.4 MG/DL Assessment and Plan Problem List: (1) AV block Assessment and Plan: Persistent high degree AV block with symptoms of fatigue. Troponin mildly elevated demand ischemia vs ACS. Will schedule for LHC/possible PCI today. If coronary anatomy unchanged will schedule for PPM. Case discussed with Dr. Junior for PPM Keep NPO for LHC and PPM (2) Bradycardia (3) New onset atrial fibrillation Terrance Busby MD December 25, 2016 11:33
[2016-12-25] MEDS ORDERED: HEPARIN SODIUM - IV 10,000 UNITS/10 ML VIAL ONE (12:33)
[2016-12-25] MEDS ORDERED: HEPARIN-NS/PF INJ 500 ML ONE (12:33)
--- NOTE | 2016-12-25 13:17 | CATHPROC ---
Endorse For A Cause HIS Report Study Information Study Number Scheduled Start Study Start [id number] 12/25/2016 Dec 25 2016 12:05PM Study Type [place] Service Left Heart Cath Cardiac Catheterization Referring Institution Admit Source Facility Department 1 Other [facility] - Tour Bus Driver/Guide Physician and Clinical Staff Initial MD Busby, Terrance Retail Wireless Sales Representativeomaira Landers RN, Fabian RecordAgusto Garay,DERRICK FOLLOWER(BS) Scrub Lizet Weinstein,RT(R) Procedures Performed Procedure Location (Site) Vessel Name Coronary Angiograms LCA Left Coronary Coronary Angiograms RCA Right Coronary Coronary Angiograms GUTIERREZ-LAD Left Coronary L Heart Cath Equipment Time Portable Machine Cutter Description Size Mfg Part Number Used/Scraped TRANSDUCER, TRUWAVE 12:18 [employer]ence * [id number] Used W/[employer] Image [id number]-502-10.0- INTRODUCER SET, 12:50 [employer] FR 5 SC-NT-U-SST Used MICROPUNCTURE, STIFFENED *[id number] [id number] *[id number] [id number] *[id number] 534-521T *[id number] 12:18 [employer] PACK, CCL CUSTOM * Used *[id number] 12:18 [employer] SUPPORT, ARTERIAL ADULT 11953 Used 12:18 [employer] MEDICAL WIRE, 3MMJ .035 180CM 180CM [id number] Used [id number] 12:18 NAMIC MANIFOLD, 4 PORT * Used *[id number] 12:18 [employer] OMNIPAQUE, 350 MG, 100ML 100ML [id number] Used [id number] 12:18 [employer] BLANKET,WARM AIR CCL * Used *[id number] SHEATH, FR6 TRANSRADIAL 12:18 [employer] FR 6 RM*[id number] Used SLENDER 10CM SHEATH, FR6 TRANSRADIAL 12:52 [employer] FR 6 RM*[id number] Used SLENDER 10CM Equipment Model, Serial, Lot Number and Expiration Data Description Model Number Serial Number Lot Number Expiration Date INTRODUCER SET, [id number] 11-13-2019 MICROPUNCTURE, STIFFENED History: Current Medications Medication Dosage/Unit Route Frequency Last Date/Time Taken Statins (any) History: Allergies Allergy Reaction No Known Allergies History: Risk Factors Family History of Hypertension Dyslipidemia Previous [place] Previous Heart Failure Premature CAD Yes Yes Yes No No Prior Valve Prior PCI Prior CABG Prior CABGDate Surgery No No Yes 08/16/1992 Cerebrovascular 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 Diabetes Disease Disease Disease No No No No No History: Stress Tests Stress or Imaging Studies Performed No History: Other Disease Selection Items CAD HTN History: [place]/CV Data Previous CABG Date 08/16/1992 History: Other Current Smoker No Labs Hgb (g/dl) Hct (%) WBC (l/cumm) Platelets (thousands) 12.00-18.00 37.00-55.00 4.80-10.80 140.00-450.00 13.3 39.2 5.5 136 BUN (mg/dl) Creatinine (mg/dl) BUN:Creatinine (1:x) 8.00-20.00 0.10-9.00 10.00-20.00 13 0.9 14.4 Na (meq/l) K (meq/l) 138.00-146.00 3.80-5.10 140 3.4 CPK-MB (ng/ML) 0.00-7.00 Not Drawn Medication Medication Total Dose (Bolus/Oral) Medication Total Dosage/Unit 1% XYLOCAINE 5 mL RADIAL COCKTAIL 5 mL (Bolus) Medications (Bolus/Oral) Medication Time Given Dosage/Unit Administered By Reason 1% XYLOCAINE 12/25/2016 12:49:35 PM 5 mL Nunez-KedarTerrance Patient arrived on 5 mL 1% XYLOCAINE given by Terrance Busby in Left Wrist via Subcutaneous. RADIAL COCKTAIL 12/25/2016 12:53:14 PM 5 mL (Bolus) Nunez-Kedar, Terrance Patient arrived on 5 mL (Bolus) RADIAL COCKTAIL given by Terrance Busby in Left Radial via Radial. Using [Solution Name]. 200 NTG 2500 HEPARIN. Medication (Drip) Medication Time Given Dosage/Unit Concentration/Unit Diluent (ml) Solution IV Solutions 12/25/2016 12:23:51 PM 0 mL (IV) NaCl .9 Patient arrived on IV Solutions in Left Antecubital via Peripheral IV. Pump/Drip Flow = 20 ml/hr usin g NaCl .9. Initial Case Assessment Cardiovascular HR Rhythm NIBP Chest Pain 34 gabe 164/71 0 Edema Present Skin color Skin None Normal Warm Dry Circulatory - Right Pulses Dorsalis Pedis Femoral Radial 1 2 2 Scale (0,1,2,3,4,d) Scale (0,1,2,3,4,d) Neurological State Oriented to time-place- Alert Moves all extremities person Respiration - General Respiration Rate SpO2 (%) (B/min) 15 98 Final Case Assessment Cardiovascular HR Rhythm NIBP Chest Pain 34 gabe 137/61 0 Edema Present Skin color Skin None Normal Warm Dry Circulatory - Right Pulses Dorsalis Pedis Femoral Radial 1 2 2 Scale (0,1,2,3,4,d) Scale (0,1,2,3,4,d) Neurological State Oriented to time-place- Alert Moves all extremities person Respiration - General Respiration Rate SpO2 (%) (B/min) 15 98 Chronological Log Time Study Chronological Log 12:23:40 Patient arrived via Bed. 12:23:40 Patient Name, D.O.B, / Armband Verified By R.N. 12:23:42 Consent signed by the physician and the patient and verified by the Tour Bus Driver/Guide staff. 12:23:42 Pre-op and post- op instructions given; patient acknowledges understanding of instructions. 12:23:43 Verbal Stimulation=2 Physical Stimulation=2 Airway=2 Respiration=2 TOTAL=8. (0=absent, 1=li mited, 2=present) 12:23:44 Presedation assessment performed by Tour Bus Driver/Guide RN. 12:23:45 Allens test performed on the left radial and ulnar artery. 12:23:46 Patient has been NPO for Less than 6Hrs. 12:23:46 Immediate Presedation assesment performed by physician. 12:23:48 Skin Breakdown- none per patient 12:23:49 Patient Warmer Placed on the Table. 12:23:50 Siri Prominences Protected 12:23:50 A # 20 IV was noted in the Antecubital (left). Grade = 0 12:23:51 Patient arrived on IV Solutions in Left Antecubital via Peripheral IV. Pump/Drip Flow = 20 ml/hr using NaCl .9. 12:23:52 History and physical on the chart or being dictated. Vitals capture started with the following parameters, Patient=Adult, Interval=5 min, Initial Pr qzorzj=751 mmHg, 12:32:11 Deflation Rate=5 mmHg 12:33:23 Reference ECG taken Assessment: Initial Case, HR=34 BPM, Rhythm=gabe, EDLW=173/71 mmhg, Chest Pain=0, Edema=None, Color=Normal, Skin = Warm, Dry 12:33:24 Right Pulses: Gurvinder Ped=1, Femoral=2, Radial=2 Neurological: State=Alert, Ox3, LEI Respiration: Resp=15 B/min, SpO2=98 % 12:33:42 HR=34 bpm, ZMPB=940/71 mmhg, ErX4=508.0 %, Resp=15 B/min, Pain=0, Daniela=10, Noel=2 12:34:52 MD arrived. 12:37:54 HR=33 bpm, NRNJ=289/66 mmhg, SpO2=98.0 %, Resp=14 B/min, Pain=0, Daniela=10, Noel=2 12:39:43 Contrast Scanned 12:39:44 Immediate Presedation assesment performed by physician. 12:40:20 Right groin and left raidal prepped with 2% chlorhexidine, and with a 3 min. waiting time. 12:42:51 HR=33 bpm, KXLU=389/73 mmhg, SpO2=99.0 %, Resp=14 B/min, Pain=0, Daniela=10, Noel=2 12:48:37 HR=33 bpm, DQNJ=860/65 mmhg, SpO2=97.0 %, Resp=14 B/min, Pain=0, Daniela=10, Noel=2 12:48:44 Pressure channel 1 zeroed. Time Out. Correct patient, correct procedure,correct physician, ,power injector not loaded with contrast with surgical 12:49:19 team present. Time Out Concurred by MD, individual staff in procedure 12:49:29 Case Start 12:49:30 Verbal Stimulation=2 Physical Stimulation=2 Airway=2 Respiration=2 TOTAL=8. (0=absent, 1=li mited, 2=present) 12:49:35 Patient arrived on 5 mL 1% XYLOCAINE given by Terrance Busby in Left Wrist via Subcutane ous. 12:52:51 Access site was Left Radial Artery. 12:52:57 HR=33 bpm, JFKM=669/62 mmhg, SpO2=94.0 %, Resp=13 B/min, Pain=0, Daniela=10, Noel=2 A SHEATH, FR6 TRANSRADIAL SLENDER 10CM FR 6 was advanced into the Radial (left) using the Percu la 12:53:01 technique. Patient arrived on 5 mL (Bolus) RADIAL COCKTAIL given by Terrance Busby in Left Radial via R adial. Using [Solution 12:53:14 Name]. 200 NTG 2500 HEPARIN. A JR 4.0 INFINITI CATHETER FR 5 was advanced over a wire. OMNIPAQUE, 350 MG, 100ML 100ML was us ed for 12:53:52 injections. Recorded Pressure: LV, HR=32, Condition=Condition 1 12:56:19 (Left Ventricle) LV 123/3/11 Recorded Pressure: LV, Ao, HR=32, Condition=Condition 1 12:56:38 (Left Ventricle) LV 127/-1/11, (Aorta) Ao 130/42/67 12:57:12 The RCA was injected and visualized at various angles. OMNIPAQUE, 350 MG, 100ML 100ML used . 12:57:59 HR=31 bpm, IHCA=043/54 mmhg, SpO2=96.0 %, Resp=15 B/min, Pain=0, Daniela=10, Noel=2 After removing the current catheter a JL 3.5 INFINITI CATHETER FR 5 was advanced over a WIRE, 3 MMJ .035 180CM 12:58:34 180CM. 12:59:47 The LCA was injected and visualized at various angles. OMNIPAQUE, 350 MG, 100ML 100ML used . After removing the current catheter a JR 4.0 INFINITI CATHETER FR 5 was advanced over a WIRE, 3 MMJ .035 180CM 13:01:07 180CM. 13:02:51 HR=34 bpm, ANQV=858/61 mmhg, SpO2=94.0 %, Resp=16 B/min, Pain=0, Daniela=10, Noel=2 After removing the current catheter a WIN INFINITI CATHETER FR 5 was advanced over a WIRE, 3MMJ .035 180CM 13:07:34 180CM. 13:07:53 HR=34 bpm, DBYW=133/61 mmhg, SpO2=95.0 %, Resp=14 B/min, Pain=0, Daniela=10, Noel=2 13:08:48 The GUTIERREZ-LAD was injected and visualized at various angles. OMNIPAQUE, 350 MG, 100ML 100ML used. 13:09:07 Catheter was removed 13:09:10 Case End Assessment: Final Case, HR=34 BPM, Rhythm=gabe, CORM=027/61 mmhg, Chest Pain=0, Edema=None, Color=Normal, Skin = Warm, Dry 13:11:11 Right Pulses: Gurvinder Ped=1, Femoral=2, Radial=2 Neurological: State=Alert, Ox3, LEI Respiration: Resp=15 B/min, SpO2=98 % 13:11:24 Catheter(s) removed without difficulty 13:11:26 Radial Compression Device Used. 12 mLs of air placed in closure device. Affected hand 95 % O2 saturation. 13:11:45 Sterile dressing applied to site 13:11:46 No case complications noted. 13:11:47 Cine recording checked. 13:11:51 Verbal Stimulation=2 Physical Stimulation=2 Airway=2 Respiration=2 TOTAL=8. (0=absent, 1=li mited, 2=present) 13:12:01 A Left Heart Cath was performed. 13:12:56 HR=33 bpm, LOIG=930/59 mmhg, SpO2=95.0 %, Resp=15 B/min, Pain=0, Daniela=10, Noel=2 13:16:28 Patient moved to stretcher 13:16:29 Vitals capture stopped. End Study - Contrast Media Used In Study Contrast Total Opened (mL) Total Used (mL) Total Wasted (mL) Omnipaque 70 70 0 End Study - Maximum Contrast Load Max Contrast Load (mL) 480.6 End Study - Radiation Exposure Fluoro Time (minutes) 8.1 End Study - Patient Disposition Complications Transferred To Interventional Outcome No Telemetry Bed No attempt made
--- NOTE | 2016-12-25 13:38 | MA ---
cc: RENE MINOR DATE 12/25/2016 DATE OF 1930 PROCEDURE PERFORMED 1. Left heart catheterization 2. Selective right and left coronary angiography. 3. GUTIERREZ angiography INDICATION High degree AV block with symptoms of fatigue. DESCRIPTION OF PROCEDURE Consent signed. The patient was brought into the cardiac aquatic laborer in a fasting state. The left wrist was prepped and draped in a sterile fashion. Using 1% lidocaine for local anesthesia, a micropuncture kit, a 6-Yakut sheath was inserted into the left radial artery. Antispasmodic cocktail was given and then selective right and left coronary angiography was performed with a JR-4 and JL-4 diagnostic catheters. Angiography was taken in multiple views. The JR -4 catheter was introduced into the ventricle over a wire followed by pressure recordings and pullback. The GUTIERREZ to the LAD was engaged with an WIN catheter and angiography was taken in multiple views. The patient tolerated the procedure well without complications. Estimated blood loss less than 30 cc. TOTAL CONTRAST USED 70 cc The left radial access site was closed with a TR band. HEMODYNAMIC RESULTS Left ventricular pressure was 127/-1 with an LVEDP of 11. The aortic pressure was 130/42 with a mean of 67. There was no gradient upon pullback from the left ventricle to aorta. ANGIOGRAPHY 1. The right coronary artery is a big vessel measuring at least 4 mm in its proximal portion. This vessel is dominant giving off the PDA and has minimal luminal irregularities throughout, however, no significant obstructions. There is diffuse disease of 60% in the PDA distally, however this vessel is of small caliber and not amenable for intervention. 2. The left main is severely disease, calcified with a 99% lesion distally. 3. The LAD is 100% occluded. 4. The left circumflex, there is a 99% lesion in its ostium. There is evidence of filling of a small circumflex OM. There is a residual vessel which retrogradely filled via collaterals that appeared to be going to the diagonal vessel. This coronary artery, however is small. GRAFTS The patient is known to have two saphenous vein grafts occluded, GUTIERREZ to the LAD is patent. This is a large vessel going to the LAD that appears to have an anastomosis in the mid LAD. It has good antegrade and posterior flow. CONCLUSION 1. High degree AV block 2. Severe [place] vessel coronary artery disease with a patent GUTIERREZ to the LAD as well as patent right coronary artery. The patient's angiography is unchanged from the last one done in 2011. RECOMMENDATIONS The patient was consulted to Dr. Junior for a permanent pacemaker placement. Continue aggressive medical management for secondary prevention of CAD. MD JUAN DIEGO Fischer/ANGY /1:17 PM /1:27 PM MTDShilpi
[2016-12-25] MEDS ORDERED: IOHEXOL 350 MG/ML 100 ML BTL (for Cath Lab) OTHER ONE (14:08)
[2016-12-26] VITALS (28 sets, daily range): BP systolic 128–171; BP diastolic 58–90; PULSE 30–42; RESP 16–20; TEMP 97.5–98.4; O2SAT 95–97
[2016-12-26] MEDS: PRAVASTATIN SOD 40 MG TAB PO SCH (08:29)
[2016-12-26] MEDS: FUROSEMIDE 20 MG TAB PO SCH (08:30)
[2016-12-26] MEDS: RIVAROXABAN 20 MG TAB PO SCH (08:31)
[2016-12-26] MEDS: LISINOPRIL 20 MG TAB PO SCH (08:32)
[2016-12-26] MEDS: amLODIPine BESYLATE 5 MG TAB PO SCH (08:32)
[2016-12-26] MEDS: SODIUM CHLORIDE 0.9% FLUSH 10 ML FLUSH IV FLUSH SCH (08:34)
--- NOTE | 2016-12-26 15:07 | PD.CARD.PN ---
Subjective Subjective Remarks Feels well, no CV c/o. Up and ambulating with assistance to BR. Objective Medications Current Medications Medications (Trade) Dose Ordered Sig/Khai Route Start Time Stop Time Status Last Admin (NS Flush) 2 ml UNSCH PRN IV FLUSH 12/23/16 13:00 (NS Flush) 2 ml BID IV FLUSH 12/23/16 21:00 12/26/16 08:34 (Tylenol) 650 mg Q4H PRN PO 12/23/16 13:00 (Zofran Inj) 4 mg Q6H PRN IVP 12/23/16 13:00 (Tylenol) 650 mg Q6H PRN PO 12/23/16 13:00 (Narcan Inj) 0.4 mg UNSCH PRN IV 12/23/16 13:00 (Lasix) 20 mg DAILY PO 12/24/16 09:00 12/26/16 08:30 (Imdur) 60 mg DAILY@07 PO 12/24/16 07:00 Hold (Prinivil) 20 mg DAILY PO 12/24/16 09:00 12/26/16 08:32 (Pravachol) 40 mg DAILY PO 12/24/16 09:00 12/26/16 08:29 (Xarelto) 20 mg DAILY PO 12/24/16 09:00 12/26/16 08:31 (Norvasc) 5 mg DAILY PO 12/24/16 16:45 12/26/16 08:32 Vital Signs / I&O Vital Signs Date Time Temp Pulse Resp B/P Pulse Ox O2 Delivery O2 Flow Rate FiO2 12/26/16 11:00 32 12/26/16 10:00 32 12/26/16 09:00 35 12/26/16 08:30 158/58 12/26/16 08:00 33 12/26/16 08:00 98.4 33 20 171/66 97 12/26/16 07:00 32 12/26/16 06:00 30 12/26/16 05:00 30 12/26/16 04:00 32 12/26/16 03:56 98.4 33 20 167/72 95 12/26/16 03:00 30 12/26/16 02:00 32 12/26/16 01:00 42 12/26/16 00:00 32 12/25/16 23:32 98.1 33 20 169/68 95 12/25/16 23:00 32 12/25/16 22:00 32 12/25/16 21:00 36 12/25/16 20:00 34 12/25/16 19:20 98.2 35 20 164/74 97 12/25/16 19:00 34 12/25/16 18:01 32 12/25/16 17:01 32 12/25/16 16:00 32 I/O 12/25/16 12/25/16 12/25/16 12/26/16 12/26/16 12/26/16 06:59 14:59 22:59 06:59 14:59 22:59 Intake Total 240 ml 720 ml 400 ml Output Total 700 ml 925 ml 700 ml Balance -460 ml -205 ml -300 ml Intake Oral 240 ml 720 ml 400 ml IV Total 0 ml Output Urine Total 700 ml 925 ml 700 ml Emesis 0 ml # Voids 5 # Bowel Movements 0 0 Physical Exam Physical Exam GENERAL: Well-nourished, well-developed patient. SKIN: Warm and dry. HEAD: Normocephalic. EYES: No scleral icterus. No injection or drainage. NECK: Supple, trachea midline. No JVD or lymphadenopathy. CARDIOVASCULAR: IRRR without murmurs, gallops, or rubs. RESPIRATORY: Breath sounds equal bilaterally. No accessory muscle use. GASTROINTESTINAL: Abdomen soft, non-tender, nondistended. BS WNL EXTREMITIES: No cyanosis, or edema. Cath site WNL. NEUROLOGICAL: Awake, alert, and oriented x 3. No focal findings. Laboratory Laboratory Tests Test 12/23/16 12/24/16 12/25/16 11:20 18:03 00:00 White Blood Count 5.5 TH/MM3 Red Blood Count 4.22 MIL/MM3 Hemoglobin 13.3 GM/DL Hematocrit 39.2 % Mean Corpuscular Volume 93.0 FL Mean Corpuscular Hemoglobin 31.4 PG Mean Corpuscular Hemoglobin 33.8 % Concent Red Cell Distribution Width 14.5 % Platelet Count 136 TH/MM3 Mean Platelet Volume 9.9 FL Neutrophils (%) (Auto) 66.6 % Lymphocytes (%) (Auto) 19.7 % Monocytes (%) (Auto) 8.9 % Eosinophils (%) (Auto) 3.6 % Basophils (%) (Auto) 1.2 % Neutrophils # (Auto) 3.7 TH/MM3 Lymphocytes # (Auto) 1.1 TH/MM3 Monocytes # (Auto) 0.5 TH/MM3 Eosinophils # (Auto) 0.2 TH/MM3 Basophils # (Auto) 0.1 TH/MM3 CBC Comment DIFF FINAL Differential Comment Magnesium Level 2.1 MG/DL Total Bilirubin 1.5 MG/DL Direct Bilirubin 0.8 MG/DL Indirect Bilirubin 0.7 MG/DL Aspartate Amino Transf 39 U/L (AST/SGOT) Alanine Aminotransferase 21 U/L (ALT/SGPT) Alkaline Phosphatase 103 U/L Total Protein 6.5 GM/DL Albumin 2.9 GM/DL Triglycerides Level 36 MG/DL Cholesterol Level 88 MG/DL LDL Cholesterol 40 MG/DL HDL Cholesterol 40.8 MG/DL Cholesterol/HDL Ratio 2.15 RATIO Thyroid Stimulating Hormone 3.380 uIU/ML 3rd Gen Digoxin Level LESS THAN 0.1 NG/ML Sodium Level 141 MEQ/L Potassium Level 4.0 MEQ/L Chloride Level 105 MEQ/L Carbon Dioxide Level 27.0 MEQ/L Anion Gap 9 MEQ/L Blood Urea Nitrogen 11 MG/DL Creatinine 0.84 MG/DL Estimat Glomerular Filtration 87 ML/MIN Rate Random Glucose 96 MG/DL Calcium Level 8.4 MG/DL Total Creatine Kinase 120 U/L Creatine Kinase MB 2.5 NG/ML Troponin I 0.18 NG/ML Assessment and Plan Problem List: (1) AV block (2) Bradycardia (3) New onset atrial fibrillation Assessment and Plan Dr. Valdez covering for Drs. Nunez/Sandi 1) AF with CVR- assymptomatic. On Xarelto 2) Bradycardia- awaiting PPM on Wednesday with Dr. Junior 3) CAD stable s/p LHC yesterday; normal revasc with patent GUTIERREZ and patent RCA. Cx subtotally occluded with retrograde filling via collateral circulation. Discussed Condition With Jayde Harris December 26, 2016 15:07
--- NOTE | 2016-12-26 16:13 | HHI.PR ---
Subjective Remarks Follow-up bradycardia 12/24/16-patient seen and examined, heart rate in the high 20s over patient denies any lightheadedness, shortness of breath or chest pain. 12/25/16-patient seen and examined, heart rate currently 31, BP normotensive, patient denies any chest pain, heart palpitation or shortness of breath. 12/26/16-patient seen and examined, no complaints. Plan for PPM placement next week Objective Vitals Vital Signs Date Time Temp Pulse Resp B/P Pulse Ox O2 Delivery O2 Flow Rate FiO2 12/26/16 15:26 98.4 33 20 168/68 97 12/26/16 15:00 36 12/26/16 14:00 36 12/26/16 13:00 35 12/26/16 12:00 34 12/26/16 12:00 98.4 33 20 158/68 97 12/26/16 11:00 32 12/26/16 10:00 32 12/26/16 09:00 35 12/26/16 08:30 158/58 12/26/16 08:00 33 12/26/16 08:00 98.4 33 20 171/66 97 12/26/16 07:00 32 12/26/16 06:00 30 12/26/16 05:00 30 12/26/16 04:00 32 12/26/16 03:56 98.4 33 20 167/72 95 12/26/16 03:00 30 12/26/16 02:00 32 12/26/16 01:00 42 12/26/16 00:00 32 12/25/16 23:32 98.1 33 20 169/68 95 12/25/16 23:00 32 12/25/16 22:00 32 12/25/16 21:00 36 12/25/16 20:00 34 12/25/16 19:20 98.2 35 20 164/74 97 12/25/16 19:00 34 12/25/16 18:01 32 12/25/16 17:01 32 I/O 12/25/16 12/25/16 12/25/16 12/26/16 12/26/16 12/26/16 07:00 15:00 23:00 07:00 15:00 23:00 Intake Total 240 ml 720 ml 400 ml Output Total 700 ml 925 ml 700 ml Balance -460 ml -205 ml -300 ml Intake Oral 240 ml 720 ml 400 ml IV Total 0 ml Output Urine Total 700 ml 925 ml 700 ml Emesis 0 ml # Voids 5 # Bowel Movements 0 0 Result Diagram: 12/23/16 1120 12/25/16 0000 Objective Remarks GENERAL: NAD SKIN: Warm and dry. HEAD: Normocephalic. EYES: No scleral icterus. No injection or drainage. NECK: Supple, trachea midline. No JVD or lymphadenopathy. CARDIOVASCULAR: Regular rate and rhythm without murmurs, gallops, or rubs. RESPIRATORY: Breath sounds equal bilaterally. No accessory muscle use. GASTROINTESTINAL: Abdomen soft, non-tender, nondistended. MUSCULOSKELETAL: No cyanosis, or edema. BACK: Nontender without obvious deformity. No CVA tenderness. A/P Problem List: (1) Bradycardia ICD Code: R00.1 Status: Acute (2) Afib ICD Code: I48.91 Status: Chronic Assessment and Plan 85-year-old man with Bradycardia Heart rate 31 Continue to Hold beta yelitza and Latanoprost eye drops Telemetry monitoring 2-D echo with EF 55-60% Appreciate input from cardiology Plan for PPM placement next week Hypokalemia-resolved Hypertension Continue other oral antihypertensive medication except beta yelitza Continue Norvasc 5 mg by mouth daily History of atrial fibrillation Continue oral anticoagulation DVT prophylaxis Dmitriy Hogan MD December 26, 2016 16:13
[2016-12-27] VITALS (29 sets, daily range): BP systolic 135–169; BP diastolic 59–77; PULSE 32–46; RESP 16–18; TEMP 97.4–98.4; O2SAT 95–100
[2016-12-27] MEDS: RIVAROXABAN 20 MG TAB PO SCH (08:09)
[2016-12-27] MEDS: PRAVASTATIN SOD 40 MG TAB PO SCH (08:09)
[2016-12-27] MEDS: LISINOPRIL 20 MG TAB PO SCH (08:09)
[2016-12-27] MEDS: FUROSEMIDE 20 MG TAB PO SCH (08:09)
[2016-12-27] MEDS: amLODIPine BESYLATE 5 MG TAB PO SCH (08:09)
[2016-12-27] MEDS: SODIUM CHLORIDE 0.9% FLUSH 10 ML FLUSH IV FLUSH SCH ×2 (08:10→20:40)
--- NOTE | 2016-12-27 11:25 | HHI.PR ---
Subjective Remarks Follow-up bradycardia 12/24/16-patient seen and examined, heart rate in the high 20s over patient denies any lightheadedness, shortness of breath or chest pain. 12/25/16-patient seen and examined, heart rate currently 31, BP normotensive, patient denies any chest pain, heart palpitation or shortness of breath. 12/26/16-patient seen and examined, no complaints. Plan for PPM placement next week 12/27/16-patient seen and examined, state has a good night.Tolerated PO without any Nausea and vomiting. Objective Vitals Vital Signs Date Time Temp Pulse Resp B/P Pulse Ox O2 Delivery O2 Flow Rate FiO2 12/27/16 10:01 34 12/27/16 09:00 34 12/27/16 08:01 97.6 32 18 159/77 97 12/27/16 08:00 32 12/27/16 07:01 39 12/27/16 06:14 98.2 36 16 169/67 98 12/27/16 06:00 46 12/27/16 05:00 34 12/27/16 04:00 36 12/27/16 03:00 39 12/27/16 02:00 36 12/27/16 01:00 36 12/27/16 00:05 98.1 36 16 135/60 96 12/27/16 00:00 36 12/26/16 23:00 35 12/26/16 22:00 38 12/26/16 21:00 36 12/26/16 20:37 97.5 39 16 128/90 97 12/26/16 20:00 38 12/26/16 19:00 39 12/26/16 18:00 38 12/26/16 17:00 37 12/26/16 16:00 36 12/26/16 15:26 98.4 33 20 168/68 97 12/26/16 15:00 36 12/26/16 14:00 36 12/26/16 13:00 35 12/26/16 12:00 34 12/26/16 12:00 98.4 33 20 158/68 97 I/O 12/26/16 12/26/16 12/26/16 12/27/16 12/27/16 12/27/16 06:59 14:59 22:59 06:59 14:59 22:59 Intake Total 400 ml 825 ml 240 ml Output Total 700 ml 1025 ml 250 ml Balance -300 ml -200 ml -10 ml Intake Oral 400 ml 825 ml 240 ml IV Total 0 ml Output Urine Total 700 ml 1025 ml 250 ml Emesis 0 ml # Bowel Movements 0 0 0 Result Diagram: 12/23/16 1120 12/25/16 0000 Objective Remarks GENERAL: NAD SKIN: Warm and dry. HEAD: Normocephalic. EYES: No scleral icterus. No injection or drainage. NECK: Supple, trachea midline. No JVD or lymphadenopathy. CARDIOVASCULAR: Regular rate and rhythm without murmurs, gallops, or rubs. RESPIRATORY: Breath sounds equal bilaterally. No accessory muscle use. GASTROINTESTINAL: Abdomen soft, non-tender, nondistended. MUSCULOSKELETAL: No cyanosis, or edema. BACK: Nontender without obvious deformity. No CVA tenderness. A/P Problem List: (1) Bradycardia ICD Code: R00.1 Status: Acute (2) Afib ICD Code: I48.91 Status: Chronic Assessment and Plan 85-year-old man with Bradycardia Heart rate 31 Continue to Hold beta yelitza and Latanoprost eye drops Telemetry monitoring 2-D echo with EF 55-60% Appreciate input from cardiology and s/p LHC 12/25/16; normal revasc with patent GUTIERREZ and patent RCA Plan for PPM placement next week Hypokalemia-resolved Hypertension Continue other oral antihypertensive medication except beta yelitza Continue Norvasc 5 mg by mouth daily History of atrial fibrillation Continue oral anticoagulation DVT prophylaxis Dmitriy Hogan MD December 27, 2016 11:25
--- NOTE | 2016-12-27 13:58 | PD.CARD.PN ---
Subjective Subjective Remarks Feels well. No CV complaints. Assymptomatic at rest with HR 35. Objective Medications Current Medications Medications (Trade) Dose Ordered Sig/Khai Route Start Time Stop Time Status Last Admin (NS Flush) 2 ml UNSCH PRN IV FLUSH 12/23/16 13:00 (NS Flush) 2 ml BID IV FLUSH 12/23/16 21:00 12/27/16 08:10 (Tylenol) 650 mg Q4H PRN PO 12/23/16 13:00 (Zofran Inj) 4 mg Q6H PRN IVP 12/23/16 13:00 (Tylenol) 650 mg Q6H PRN PO 12/23/16 13:00 (Narcan Inj) 0.4 mg UNSCH PRN IV 12/23/16 13:00 (Lasix) 20 mg DAILY PO 12/24/16 09:00 12/27/16 08:09 (Imdur) 60 mg DAILY@07 PO 12/24/16 07:00 Hold (Prinivil) 20 mg DAILY PO 12/24/16 09:00 12/27/16 08:09 (Pravachol) 40 mg DAILY PO 12/24/16 09:00 12/27/16 08:09 (Xarelto) 20 mg DAILY PO 12/24/16 09:00 12/27/16 08:09 (Norvasc) 5 mg DAILY PO 12/24/16 16:45 12/27/16 08:09 Vital Signs / I&O Vital Signs Date Time Temp Pulse Resp B/P Pulse Ox O2 Delivery O2 Flow Rate FiO2 12/27/16 12:01 36 12/27/16 11:18 97.4 36 18 157/68 100 12/27/16 11:00 38 12/27/16 10:01 34 12/27/16 09:00 34 12/27/16 08:01 97.6 32 18 159/77 97 12/27/16 08:00 32 12/27/16 07:01 39 12/27/16 06:14 98.2 36 16 169/67 98 12/27/16 06:00 46 12/27/16 05:00 34 12/27/16 04:00 36 12/27/16 03:00 39 12/27/16 02:00 36 12/27/16 01:00 36 12/27/16 00:05 98.1 36 16 135/60 96 12/27/16 00:00 36 12/26/16 23:00 35 12/26/16 22:00 38 12/26/16 21:00 36 12/26/16 20:37 97.5 39 16 128/90 97 12/26/16 20:00 38 12/26/16 19:00 39 12/26/16 18:00 38 12/26/16 17:00 37 12/26/16 16:00 36 12/26/16 15:26 98.4 33 20 168/68 97 12/26/16 15:00 36 12/26/16 14:00 36 I/O 12/26/16 12/26/16 12/26/16 12/27/16 12/27/16 12/27/16 07:00 15:00 23:00 07:00 15:00 23:00 Intake Total 400 ml 825 ml 240 ml Output Total 700 ml 1025 ml 250 ml Balance -300 ml -200 ml -10 ml Intake Oral 400 ml 825 ml 240 ml IV Total 0 ml Output Urine Total 700 ml 1025 ml 250 ml Emesis 0 ml # Bowel Movements 0 0 0 Physical Exam Physical Exam GENERAL: Well-nourished, well-developed patient. SKIN: Warm and dry. HEAD: Normocephalic. EYES: No scleral icterus. No injection or drainage. NECK: Supple, trachea midline. No JVD or lymphadenopathy. CARDIOVASCULAR: IRRR without murmurs, gallops, or rubs. RESPIRATORY: Breath sounds equal bilaterally. No accessory muscle use. GASTROINTESTINAL: Abdomen soft, non-tender, nondistended. BS WNL EXTREMITIES: No cyanosis, or edema. Cath site Left radial- WNL. NEUROLOGICAL: Awake, alert, and oriented x 3. No focal findings. Laboratory Laboratory Tests Test 12/23/16 12/24/16 12/25/16 11:20 18:03 00:00 White Blood Count 5.5 TH/MM3 Red Blood Count 4.22 MIL/MM3 Hemoglobin 13.3 GM/DL Hematocrit 39.2 % Mean Corpuscular Volume 93.0 FL Mean Corpuscular Hemoglobin 31.4 PG Mean Corpuscular Hemoglobin 33.8 % Concent Red Cell Distribution Width 14.5 % Platelet Count 136 TH/MM3 Mean Platelet Volume 9.9 FL Neutrophils (%) (Auto) 66.6 % Lymphocytes (%) (Auto) 19.7 % Monocytes (%) (Auto) 8.9 % Eosinophils (%) (Auto) 3.6 % Basophils (%) (Auto) 1.2 % Neutrophils # (Auto) 3.7 TH/MM3 Lymphocytes # (Auto) 1.1 TH/MM3 Monocytes # (Auto) 0.5 TH/MM3 Eosinophils # (Auto) 0.2 TH/MM3 Basophils # (Auto) 0.1 TH/MM3 CBC Comment DIFF FINAL Differential Comment Magnesium Level 2.1 MG/DL Total Bilirubin 1.5 MG/DL Direct Bilirubin 0.8 MG/DL Indirect Bilirubin 0.7 MG/DL Aspartate Amino Transf 39 U/L (AST/SGOT) Alanine Aminotransferase 21 U/L (ALT/SGPT) Alkaline Phosphatase 103 U/L Total Protein 6.5 GM/DL Albumin 2.9 GM/DL Triglycerides Level 36 MG/DL Cholesterol Level 88 MG/DL LDL Cholesterol 40 MG/DL HDL Cholesterol 40.8 MG/DL Cholesterol/HDL Ratio 2.15 RATIO Thyroid Stimulating Hormone 3.380 uIU/ML 3rd Gen Digoxin Level LESS THAN 0.1 NG/ML Sodium Level 141 MEQ/L Potassium Level 4.0 MEQ/L Chloride Level 105 MEQ/L Carbon Dioxide Level 27.0 MEQ/L Anion Gap 9 MEQ/L Blood Urea Nitrogen 11 MG/DL Creatinine 0.84 MG/DL Estimat Glomerular Filtration 87 ML/MIN Rate Random Glucose 96 MG/DL Calcium Level 8.4 MG/DL Total Creatine Kinase 120 U/L Creatine Kinase MB 2.5 NG/ML Troponin I 0.18 NG/ML Assessment and Plan Problem List: (1) AV block (2) Bradycardia (3) New onset atrial fibrillation Assessment and Plan Dr. Valdez covering for Drs. Nunez/Sandi 1) AF with CVR- assymptomatic. Tonia put on hold for pacemaker in am. 2) High degree AVB- Bradycardia- awaiting PPM on Wednesday with Dr. Junior 3) CAD stable s/p LHC yesterday; normal revasc with patent GUTIERREZ and patent RCA. Cx subtotally occluded with retrograde filling via collateral circulation. Discussed Condition With Jayde Harris December 27, 2016 13:57
[2016-12-28] VITALS (23 sets, daily range): BP systolic 141–167; BP diastolic 71–80; PULSE 34–71; RESP 18; TEMP 97.4–99.5; O2SAT 95–99
[2016-12-28] MEDS ORDERED: VANCOMYCIN 500 MG VIAL ONE (07:36)
[2016-12-28] MEDS ORDERED: LIDOCAINE HCL 2% 50 ML VIAL ONE (07:36)
[2016-12-28] MEDS ORDERED: ceFAZolin INJ 1,000 MG VIAL ONE (07:36)
[2016-12-28] MEDS ORDERED: VANCOMYCIN HCL 1000 MG VIAL ONE (07:36)
[2016-12-28] MEDS ORDERED: ONDANSETRON HCL 4 MG/2 ML VIAL IV PRN (09:00)
[2016-12-28] MEDS ORDERED: ACETAMINOPHEN/CODEINE 300 MG/30 MG TAB PO PRN (09:00)
--- NOTE | 2016-12-28 09:00 | CATHPROC ---
Patient Name: DK GUERRERO Study #: [id number] Initial MD: Jermaine Junior Date of : 1930 Study Date: 12/28/2016 Cardiac Catheterization Report 12/28/2016 9:00:10 AM Financial #: [id number] 1 of 7 Patient Name: DK GUERRERO Study #: [id number] Initial MD: Jermaine Junior Date of : 1930 Study Date: 12/28/2016 Entire Case Report Patient Information Patient Name DK GUERRERO Date of 1930 Age 86 years Financial # [id number] Gender M AlternateID Lab Number 2 Accession # Room Number Height (in) 72.0 Height (cm) 182.8 BSA 2.08 Weight (lbs) 187.9 Weight (kg) 85.4 Patient Address/Phone Number Home Address [facility] Home Phone Number [address] [facility] [address] [facility] [address] Study Information Study Number Admission Scheduled Start Study Start [id number] 12/24/2016 12/28/2016 Dec 28 2016 7:31AM Referring Institution Admit Source Facility Department 1 Other [facility] - Retail Event Coordinator Physician and Clinical Staff Initial Jermaine Beth Founder And Chief Technical Officer Doron Chavez,RT(R) Founder And Chief Technical Officer Pinky Li,[employer]ICAL SERGEANT TECH2 Other Anesthesia, PERINATAL TECH Recorder Ute Elizondo,JORDI Scrub Astrid Auguste,NETO Procedures Performed Procedure Location (Site) Vessel Name Lead Insertion Venogram Antecubital (left) Antecubital Vein 12/28/2016 9:00:10 AM Financial #: [id number] 2 of 7 Patient Name: DK GUERRERO Study #: [id number] Initial MD: Jermaine Junior Date of : 1930 Study Date: 12/28/2016 Equipment Time 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 Description Size Mfg Part Number Used/Scraped 08:41 BIOTRONIK PACEMAKER, ELUNA 8 SR-T DDDR [id number] Used PACEMAKER, SELOX 60 BP PRO 08:39 BIOTRONIK * [id number] Used MRI 08:38 [facility] [employer] PACER SAFE SHEATH, FR7, 13CM FR 7 [id number] Used 08:24 Needle Sponge Count 1 111 Used 08:23 Needle Sponge Count 2 2 Used 08:24 Needle Sponge Count 20 200 Used 08:35 NYCOMED OMNIPAQUE, 300 MG, 100ML 100ML [id number] Used Equipment Model, Serial, Lot Number and Expiration Data Description Model Number Serial Number Lot Number Expiration Date PACEMAKER, ELUNA 8 SR-T [id number] 01-13-2017 PACEMAKER, SELOX 60 BP PRO MRI [id number] 10-13-2018 Insurance Information Insurance Payor Medicare, Private Health Insurance Third Alliance Party Third Alliance Party Number HU[employer] GOLD PLUS HMO HUM[employer] History: Allergies Allergy Reaction No Known Allergies History: Risk Factors Family History of Hypertension Dyslipidemia Previous ME Previous Heart Failure Premature CAD Yes Yes No No No Prior Valve Prior PCI Prior CABG Prior CABGDate Surgery No No Yes 08/16/1992 Cerebrovascular 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 Diabetes Disease Disease Disease No No No No No History: Stress Tests Stress or Imaging Studies Performed No History: Arrhythmias Selection Items Atrial fibrillation Labs 12/28/2016 9:00:10 AM Financial #: [id number] 3 of 7 Patient Name: DK GUERRERO Study #: [id number] Initial MD: Jermaine Junior Date of : 1930 Study Date: 017 Hgb (g/dl) Hct (%) WBC (l/cumm) Platelets (thousands) 12.00-18.00 37.00-55.00 4.80-10.80 140.00-450.00 13.0 39 4.2 136 Glucose (mg/dl) BUN (mg/dl) Creatinine (mg/dl) BUN:Creatinine (1:x) 60.00-110.00 8.00-20.00 0.10-9.00 10.00-20.00 96 11 0.8 13.8 Na (meq/l) K (meq/l) 138.00-146.00 3.80-5.10 141 4 Medication Medication Total Dose (Bolus/Oral) Medication Total Dosage/Unit 2% XYLOCAINE 50 mL Medications (Bolus/Oral) Medication Time Given Dosage/Unit Administered By Reason 2% XYLOCAINE 12/28/2016 8:32:22 AM 50 mL Jermaine Junior 50 mL 2% XYLOCAINE given in lab by Jermaine Junior via Subcutaneous. LEFT UPPER CHEST Medication (Drip) Medication Time Given Dosage/Unit Concentration/Unit Diluent (ml) Soluti on ANCEF 12/28/2016 8:05:17 AM 2 g 2 g ANCEF given in lab by Anesthesia, PERINATAL TECH in Right Hand via Peripheral IV. IV Solutions 12/28/2016 7:54:56 AM 0 mL (IV) 500 NaCl .9 IV Solutions given in lab by Jermaine Junior in Right Hand via Peripheral IV. Pump/Drip Flow = 20 ml/hr using NaCl .9. IV Solutions 12/28/2016 7:55:50 AM 0 mL (IV) 500 NaCl .9 IV Solutions given in lab by Jermaine Junior in Left Antecubital via Peripheral IV. Pump/Drip Flow = 20 ml/hr using NaCl .9. VANCOMYCIN DRIP 12/28/2016 8:03:29 AM 1 g 1 g VANCOMYCIN DRIP given in lab by Anesthesia, PERINATAL TECH in Right Hand via Peripheral IV. 12/28/2016 9:00:10 AM Financial #: [id number] Patient Name: DK GUERRERO Study #: [id number] Initial MD: Jermaine Junior Date of : 1930 Study Date: 12/28/2016 Initial Case Assessment Cardiovascular HR NIBP 33 184/79 Edema Present Skin color Skin None Normal Warm Dry Neurological State Oriented to time-place- Alert Moves all extremities person Respiration - General Respiration Rate SpO2 (%) (B/min) 13 96 Initial Case Assessment Cardiovascular HR NIBP 69 124/59 Edema Present Skin color Skin None Normal Warm Dry Neurological State Oriented to time-place- Alert Moves all extremities person Respiration - General Respiration Rate SpO2 (%) O2 (lpm) (B/min) 13 100 4 Chronological Log Time Study Chronological Log 7:30:50 Anesthesia at bedside. Assumes care of patient. 7:35:39 Patient arrived via Bed. We are waiting for Dr. Junior to arrive and sign the insertion site . 7:52:19 Patient Name, D.O.B, / Armband Verified By R.N. 7:52:20 Consent signed by the physician and the patient and verified by the Retail Event Coordinator staff. 7:52:22 Pre-op and post- op instructions given; patient acknowledges understanding of instructions. 7:52:23 Verbal Stimulation=2 Physical Stimulation=2 Airway=2 Respiration=2 TOTAL=8. (0=absent, 1=li mited, 2=present) 7:52:56 Presedation assessment performed by Retail Event Coordinator RN. 7:52:58 Patient has been NPO for More than 6Hrs. 7:53:02 Skin Breakdown/none per patient 7:54:28 A # 20 IV was noted in the Antecubital (left). Grade = 0 12/28/2016 9:00:10 AM Financial #: [id number] 5 of 7 Patient Name: DK GUERRERO Study #: [id number] Initial MD: Jermaine Junior Date of : 1930 Study Date: 12/28/2016 7:54:40 A # 22 IV was noted in the Hand (right). Grade = 0 7:54:56 IV Solutions given in lab by Jermaine Junior in Right Hand via Peripheral IV. Pump/Drip Flow = 20 ml/hr using NaCl .9. IV Solutions given in lab by Jermaine Junior in Left Antecubital via Peripheral IV. Pump/Drip Shahram w = 20 ml/hr using NaCl 7:55:50 .9. 7:57:50 MD arrived. 8:03:29 1 g VANCOMYCIN DRIP given in lab by Anesthesia, PERINATAL TECH in Right Hand via Peripheral IV. 8:05:17 2 g ANCEF given in lab by Anesthesia, PERINATAL TECH in Right Hand via Peripheral IV. Assessment: Initial Case, HR=33 BPM, QXQI=314/79 mmhg, Edema=None, Color=Normal, Skin = Warm, D ry 8:15:44 Neurological: State=Alert, Ox3, LEI Respiration: Resp=13 B/min, SpO2=96 % 8:21:46 Left Upper Chest Prepped Times Two. 8:22:21 Disposable Defibrillator Pads Placed On Patient. 8:22:25 2% CHLORHEXIDINE GLUCONATE WASH AND NASAL SWIPE DONE PRIOR TO PROCEDURE. 8:22:31 Pre-procedure assessment data was performed with the previous procedure. First Sponge And Instrument Count Done by Ute Elizondo RN. 8:22:33 Hypo's: 2, Sponges: 20, Bovie/scratch: 1 Sutures: 10, Blades: 1, Instruments: 26, Syveck Patches: 0 Time Out. Correct patient, procedure, procedure equipment, site and side verified with physicia n present. Time 8:30:57 concurred by MD, individual staff and PERINATAL TECH. Time Out #2 - Consents verified, patient in correct position, all results are labled and displa yed, safety precautions 8:30:58 taken, antibiotics administered. Time out concurred by MD, individual staff and PERINATAL TECH in procedu re 8:31:03 Case Start 8:32:22 50 mL 2% XYLOCAINE given in lab by Jermaine Junior via Subcutaneous. LEFT UPPER CHEST 8:34:04 The Antecubital (left) was manually injected with 10 cc's of contrast. OMNIPAQUE, 300 MG, 1 00ML 100ML used. 8:34:28 Vascular access was obtained in the Subclav. Vein (Lft. 8:36:15 Surgical Incision Made. 8:36:17 A pocket was created at the L Upper Chest. 8:37:24 A SAFE SHEATH, FR7, 13CM FR 7 was advanced into the Subclav. Vein (Lft using the Modified S eldinger technique. 8:38:38 A PACEMAKER, SELOX 60 BP PRO MRI * was inserted and positioned in the RV. 8:38:58 Lead placement verified under fluoroscopy 8:39:00 The RV lead impedance and threshold being tested. 8:40:51 The RV lead was sutured to the fascia. 8:41:00 Pocket flushed with antibiotic solution 8:41:08 A PACEMAKER, ELUNA 8 SR-T DDDR was connected and placed in the pocket. Second Sponge And Instrument Count Done by Doron Chavez, RT(R). 8:43:17 Hypo's: 2, Sponges: 20, Bovie/scratch: 1 Sutures: ~SUTURE~, Blades: 1, Instruments: ~INSTRU~, Syveck Patches: ~SYVECK PATCH~ 8:43:39 The pocket was closed. 8:43:44 Implant Procedure was performed. 8:44:33 A PPM Implant . (Single) 12/28/2016 9:00:10 AM Financial #: [id number] 6 of 7 Patient Name: DK GUERRERO Study #: [id number] Initial MD: Jermaine Junior Date of : 1930 Study Date: 12/28/2016 8:45:25 Bedside Report will be given. 8:48:40 Case End The Final Sponge And Instrument Count Done by Doron Chavez RT(R). 8:51:21 Hypo's: 2, Sponges: 20, Bovie/scratch: bovie/scratch Sutures: 10, Blades: 1, Instruments: 26, Syveck Patches: 0 8:51:57 Steri-strips and a sterile dressing applied to site. Assessment: Initial Case, HR=69 BPM, FXEX=758/59 mmhg, Edema=None, Color=Normal, Skin = Warm, Dry 8:52:16 Neurological: State=Alert, Ox3, LEI Respiration: Resp=13 B/min, CsM4=669 %, O2=4 lpm 8:54:20 Sterile dressing applied to site 8:54:33 No case complications noted. 8:54:35 Cine recording checked. 8:56:57 A sling was placed on the affected arm. 9:00:01 Patient moved to stretcher End Study - Contrast Media Used In Study Contrast Total Opened (mL) Total Used (mL) Total Wasted (mL) Omnipaque 50 10 40 End Study - Maximum Contrast Load Max Contrast Load (mL) 533.8 End Study - Radiation Exposure Fluoro Time (minutes) 1.3 End Study - Patient Disposition Complications Transferred To Telemetry Bed 12/28/2016 9:00:10 AM Financial #: [id number]
--- NOTE | 2016-12-28 09:21 | MB ---
cc: WILIAM JUNIOR M.D. DATE OF CONSULTATION: 12/28/2016 REASON FOR CONSULTATION Symptomatic severe bradycardia. HISTORY OF PRESENT ILLNESS Mr. Gomez is an 86-year-old gentleman with a history of coronary artery disease, coronary artery bypass grafting, high blood pressure, hyperlipidemia, admitted to the emergency room due to symptomatic bradycardia and dizziness. He has a normal ejection fraction. During hospitalization a left heart catheterization was performed by Dr. Nunez that indicated no need for revascularization. I was consulted for further evaluation and management. The chart was reviewed. The patient was evaluated. ALLERGIES None. SOCIAL HISTORY Negative for smoking and drinking. FAMILY HISTORY Noncontributory to his current medical condition. MEDICATIONS The patient is currently on: 1. Acetaminophen. 2. Amlodipine 5 mg a day. 3. Lasix 20 mg a day. 4. Imdur 60 mg a day. 5. Lisinopril 20 mg a day. 6. Pravachol 40 mg a day. 7. Xarelto 20 mg a day. REVIEW OF SYSTEMS He refers no chest pain, no chest discomfort. Shortness of breath with minimal activity and dizziness. No vomiting. No fever. PHYSICAL EXAMINATION GENERAL: Alert, fully oriented. VITAL SIGNS: Blood pressure 161/71, pulse 34, respiratory rate 18. LUNGS: Ventilated. CARDIOVASCULAR: S1, S2, irregular, bradycardic. ABDOMEN: Soft. No mass. EXTREMITIES: No lower extremity edema. ELECTROCARDIOGRAM Electrocardiogram: Atrial fibrillation, severe bradycardia, diffuse ST changes. LABORATORY Hemoglobin 13. White blood cell count 5.5. Potassium 4.0. Creatinine 0.84. Troponin 0.18. ASSESSMENT AND RECOMMENDATION Mr. Gomez has severe bradycardia, symptomatic, on no negative chronotropic medication, bradycardia for the past five days. He will need pacing support. Permanent pacemaker discussed. The risks, the nature and the benefit of the procedure were clearly stated to him. The risks include pneumothorax, cardiac perforation, stroke and even . The patient understood and agreed to proceed. The procedure will be performed during hospitalization. Wiliam Junior MD HS/BT /8:58 AM /9:13 AM
--- NOTE | 2016-12-28 09:31 | MP ---
cc: YOU EDDY M.D., HANSCY M.D. [facility], PEDRO DATE OF SURGERY: 12/28/2016 PROCEDURE Single-chamber permanent pacemaker insertion. INDICATION Mr. Gomez is an 86-year-old gentleman with coronary artery disease, high blood pressure, hyperlipidemia, coronary artery bypass grafting, severe symptomatic bradycardia and atrial fibrillation to undergo pacer insertion. The risks, the nature and the benefit of the procedure were clearly stated to him. The risks include pneumothorax, cardiac perforation, stroke, need for open heart surgery and even . The patient understood and agreed to proceed. DETAILS OF PROCEDURE After written informed consent was obtained, the patient was brought to the EP lab where he was prepped and draped in the usual sterile fashion. Conscious sedation was initiated and maintained throughout the procedure by the anesthesiologist. Once sedation was verified, the left infraclavicular area was anesthetized with 2% Xylocaine. Using modified Seldinger technique and simultaneous contrast injection via the left antecubital vein, the left subclavian vein was cannulated on one occasion and one guidewire was advanced. Peripheral venography showed multiple irregularities in the vein. Then using a #11 scalpel, a 2 cm incision was made two fingerbreadth below the left clavicle. Dissection was then taken down to the fascial layer using Bovie cautery and blunt dissection. Into the inferomedial direction a device pocket was dissected. Then the wire was dissected into the pocket. 2-0 Vicryl suture was placed around the wire to prevent back bleeding. At this point over the wire a 7-Chilean dilator and introducer was advanced. As the dilator and wire were removed, an active fixation right ventricular pacing and sensing lead was advanced. After adequate pacing and sensing thresholds were obtained, the lead was secured in the pocket using #2 Ethibond suture. At that point the pocket was copiously irrigated using antibiotic solution. The lead was connected to the generator and placed into the pocket. I did proceed with wound closure. The deep fascial layer was approximated using 2-0 Vicryl suture in a continuous fashion. The subcutaneous layer was approximated using 2-0 Vicryl suture in a continuous fashion. The subcuticular layer was approximated using 2-0 Vicryl suture in a continuous fashion. Dermabond adhesive was applied to the wound followed by a sterile pressure dressing. There was no complication. The patient tolerated the procedure. Blood loss minimal. IMPLANTED HARDWARE The implanted permanent pacemaker is a Biotronik model 809134, serial number [id number]. The right ventricular pacing and sensing lead is a Biotronik model 325680, serial number [id number]. THRESHOLDS The right ventricular pacing threshold in the bipolar mode was 0.8 volts at 0.4 milliseconds. Lead impedance 624 ohms. R-wave cannot be measured. The patient is basically completely pacer dependent. The measured R-wave was over 12 millivolts. SETTINGS The device is set in VVIR 70, upper limit 120 beats per minute. CONCLUSION Successful permanent pacemaker insertion. COMMENT/RECOMMENDATION The patient is going to be transferred to the recovery room. He will be observed and when stable can be discharged home. MD LILLIAN Rod/HANS /9:01 AM /9:20 AM
[2016-12-28] MEDS: FUROSEMIDE 20 MG TAB PO SCH (09:37)
[2016-12-28] MEDS: LISINOPRIL 20 MG TAB PO SCH (09:37)
[2016-12-28] MEDS: SODIUM CHLORIDE 0.9% FLUSH 10 ML FLUSH IV FLUSH SCH ×2 (09:37→21:02)
[2016-12-28] MEDS: PRAVASTATIN SOD 40 MG TAB PO SCH (09:37)
[2016-12-28] MEDS: amLODIPine BESYLATE 5 MG TAB PO SCH (09:37)
--- NOTE | 2016-12-28 09:47 | RADRPT ---
EXAM DATE/TIME: 12/28/2016 09:11 [place] COMPARISON: CHEST SINGLE AP, December 05, 2015, 12:42. INDICATIONS : Post pacemaker placement. MEDICAL HISTORY : Hypertension. SURGICAL HISTORY : CABG. ENCOUNTER: Initial ACUITY: 1 day PAIN SCORE: Non-responsive. LOCATION: Bilateral chest FINDINGS: Pacemaker is in good position. There is no pneumothorax. There is marked elevation of the right hem idiaphragm. Left lung is clear. There is mild compensated cardiomegaly. CONCLUSION: There is no evidence for pneumothorax. Octavio Aragon MD FACR on December 28, 2016 at 9:33 Board Certified Radiologist. This report was verified electronically.
[2016-12-28] MEDS: ACETAMINOPHEN/CODEINE 300 MG/30 MG TAB PO PRN ×2 (11:11→21:01)
--- NOTE | 2016-12-28 12:54 | HHI.PR ---
Subjective Remarks Follow-up bradycardia 12/24/16-patient seen and examined, heart rate in the high 20s over patient denies any lightheadedness, shortness of breath or chest pain. 12/25/16-patient seen and examined, heart rate currently 31, BP normotensive, patient denies any chest pain, heart palpitation or shortness of breath. 12/26/16-patient seen and examined, no complaints. Plan for PPM placement next week 12/27/16-patient seen and examined, state has a good night.Tolerated PO without any Nausea and vomiting. 12/28/16-patient seen and examined, patient is status post PPM placement. Vitals stable and heart rate 70s Objective Vitals Vital Signs Date Time Temp Pulse Resp B/P Pulse Ox O2 Delivery O2 Flow Rate FiO2 12/28/16 12:02 69 12/28/16 11:46 97.8 70 18 167/80 95 12/28/16 11:46 69 12/28/16 10:40 69 12/28/16 07:00 34 12/28/16 07:00 97.4 36 18 155/80 98 12/28/16 06:00 34 12/28/16 05:00 34 12/28/16 04:00 34 12/28/16 03:00 97.5 34 18 161/71 98 12/28/16 03:00 34 12/28/16 02:00 34 12/28/16 01:00 38 12/28/16 00:00 36 12/27/16 23:00 38 12/27/16 23:00 97.8 37 18 144/59 95 12/27/16 22:00 38 12/27/16 21:00 38 12/27/16 20:00 38 12/27/16 19:00 38 12/27/16 19:00 98.4 37 18 167/70 98 12/27/16 18:01 38 12/27/16 17:00 38 12/27/16 16:01 36 12/27/16 15:35 97.7 38 18 162/59 99 12/27/16 15:00 36 12/27/16 14:00 36 12/27/16 13:00 34 I/O 12/27/16 12/27/16 12/27/16 12/28/16 12/28/16 12/28/16 06:59 14:59 22:59 06:59 14:59 22:59 Intake Total 240 ml 480 ml 240 ml Output Total 250 ml 900 ml 450 ml Balance -10 ml -420 ml -210 ml Intake Oral 240 ml 480 ml 240 ml Output Urine Total 250 ml 900 ml 450 ml # Voids 3 # Bowel Movements 0 0 0 Result Diagram: 12/25/16 0000 Objective Remarks GENERAL: NAD SKIN: Warm and dry. HEAD: Normocephalic. EYES: No scleral icterus. No injection or drainage. NECK: Supple, trachea midline. No JVD or lymphadenopathy. CARDIOVASCULAR: Regular rate and rhythm without murmurs, gallops, or rubs. Dressing over incision site RESPIRATORY: Breath sounds equal bilaterally. No accessory muscle use. GASTROINTESTINAL: Abdomen soft, non-tender, nondistended. MUSCULOSKELETAL: No cyanosis, or edema. BACK: Nontender without obvious deformity. No CVA tenderness. Procedures Status post Single-chamber permanent pacemaker insertion 12/28/16 A/P Problem List: (1) Bradycardia ICD Code: R00.1 Status: Acute (2) Afib ICD Code: I48.91 Status: Chronic Assessment and Plan 85-year-old man with Bradycardia Heart rate 31 Continue to Hold beta yelitza and Latanoprost eye drops. Likely will resume beta yelitza and eyedrop prior to discharge Telemetry monitoring 2-D echo with EF 55-60% Appreciate input from cardiology and s/p LHC 12/25/16; normal revasc with patent GUTIERREZ and patent RCA Status post Single-chamber permanent pacemaker insertion 12/28/16 Hypokalemia-resolved Hypertension Continue other oral antihypertensive medication except beta yelitza. Will resume likely beta yelitza prior to discharge Continue Norvasc 5 mg by mouth daily History of atrial fibrillation Continue oral anticoagulation Resume Xarelto likely in a.m. if okay with cardiology DVT prophylaxis Xarelto on hold Dmitriy Rojas MD December 28, 2016 12:54
[2016-12-28] MEDS ORDERED: PROPOFOL 200 MG/20 ML AMP IV ONE (14:31)
[2016-12-28] MEDS: ceFAZolin 2 GM PREMIX 50 ML IV SCH ×2 (16:44→23:38)
[2016-12-29] VITALS (18 sets, daily range): BP systolic 134–147; BP diastolic 65–79; PULSE 69–79; RESP 18; TEMP 97.6–98.9; O2SAT 95–98
[2016-12-29] MEDS: ceFAZolin 2 GM PREMIX 50 ML IV SCH (08:39)
[2016-12-29] MEDS: LISINOPRIL 20 MG TAB PO SCH (08:39)
[2016-12-29] MEDS: amLODIPine BESYLATE 5 MG TAB PO SCH (08:40)
[2016-12-29] MEDS: RIVAROXABAN 20 MG TAB PO SCH (08:40)
[2016-12-29] MEDS: FUROSEMIDE 20 MG TAB PO SCH (08:40)
[2016-12-29] MEDS: PRAVASTATIN SOD 40 MG TAB PO SCH (08:40)
[2016-12-29] MEDS: SODIUM CHLORIDE 0.9% FLUSH 10 ML FLUSH IV FLUSH SCH (08:40)
--- NOTE | 2016-12-29 11:51 | HHI.PR ---
Subjective Remarks Follow-up bradycardia 12/24/16-patient seen and examined, heart rate in the high 20s over patient denies any lightheadedness, shortness of breath or chest pain. 12/25/16-patient seen and examined, heart rate currently 31, BP normotensive, patient denies any chest pain, heart palpitation or shortness of breath. 12/26/16-patient seen and examined, no complaints. Plan for PPM placement next week 12/27/16-patient seen and examined, state has a good night.Tolerated PO without any Nausea and vomiting. 12/28/16-patient seen and examined, patient is status post PPM placement. Vitals stable and heart rate 70s 12/29/16-patient seen and examined, he was up and ambulated. Denies any chest pain or shortness of breath. Denies any anterior wall pain. Objective Vitals Vital Signs Date Time Temp Pulse Resp B/P Pulse Ox O2 Delivery O2 Flow Rate FiO2 12/29/16 11:00 97.9 73 18 136/65 98 12/29/16 11:00 79 12/29/16 10:00 72 12/29/16 09:00 70 12/29/16 08:00 70 12/29/16 07:00 98.1 73 18 147/76 95 12/29/16 07:00 71 12/29/16 06:00 71 12/29/16 05:00 70 12/29/16 04:00 70 12/29/16 03:00 73 12/29/16 03:00 98.9 71 18 134/72 95 12/29/16 02:00 69 12/29/16 01:00 70 12/29/16 00:00 73 12/28/16 23:00 70 12/28/16 23:00 99.5 71 18 151/74 95 12/28/16 22:00 68 12/28/16 21:00 70 12/28/16 20:00 70 12/28/16 19:50 98.8 71 18 141/72 99 12/28/16 19:00 70 12/28/16 18:11 71 12/28/16 17:00 70 12/28/16 16:00 70 12/28/16 15:00 70 12/28/16 15:00 97.9 71 18 144/78 98 12/28/16 14:49 71 12/28/16 13:00 70 12/28/16 12:02 69 I/O 12/28/16 12/28/16 12/28/16 12/29/16 12/29/16 12/29/16 07:00 15:00 23:00 07:00 15:00 23:00 Intake Total 240 ml 1100 ml 650 ml Output Total 450 ml 800 ml 750 ml Balance -210 ml 300 ml -100 ml Intake Oral 240 ml 850 ml 600 ml IV Total 250 ml 50 ml Output Urine Total 450 ml 800 ml 750 ml # Voids 1 # Bowel Movements 0 1 0 Result Diagram: 12/25/16 0000 Objective Remarks GENERAL: NAD SKIN: Warm and dry. HEAD: Normocephalic. EYES: No scleral icterus. No injection or drainage. NECK: Supple, trachea midline. No JVD or lymphadenopathy. CARDIOVASCULAR: Regular rate and rhythm without murmurs, gallops, or rubs. Dressing over incision site RESPIRATORY: Breath sounds equal bilaterally. No accessory muscle use. GASTROINTESTINAL: Abdomen soft, non-tender, nondistended. MUSCULOSKELETAL: No cyanosis, or edema. BACK: Nontender without obvious deformity. No CVA tenderness. Procedures Status post Single-chamber permanent pacemaker insertion 12/28/16 A/P Problem List: (1) Bradycardia ICD Code: R00.1 Status: Acute (2) Afib ICD Code: I48.91 Status: Chronic Assessment and Plan 85-year-old man with Bradycardia Continue to Hold beta yelitza and Latanoprost eye drops. Will resume beta yelitza and eyedrop prior to discharge Telemetry monitoring 2-D echo with EF 55-60% Appreciate input from cardiology and s/p C 12/25/16; normal revasc with patent GUTIERREZ and patent RCA Status post Single-chamber permanent pacemaker insertion 12/28/16 Hypokalemia-resolved Hypertension Continue other oral antihypertensive medication except beta yelitza. Will resume likely beta yelitza prior to discharge Continue Norvasc 5 mg by mouth daily History of atrial fibrillation Continue oral anticoagulation Resume Xarelto DVT prophylaxis Xarelto on hold Dmitriy Rojas MD December 29, 2016 11:51
--- NOTE | 2016-12-29 11:54 | HHI.DS ---
Discharge Summary Admission Date December 24, 2016 at 08:36 Discharge Date: December 29, 2016 Admitting Diagnosis Bradycardia (1) Bradycardia ICD Code: R00.1 (2) Afib ICD Code: I48.91 Procedures Status post Single-chamber permanent pacemaker insertion 12/28/16 Brief History - From Admission 85-year-old male with known history of CAD status post CABG who in his regular office visit with his PCP was noted to have Heart rate was around 30s. Patient is on beta yelitza and was also started on an eye drop within the past few weeks. He was sent over to the ED by PCP for further evaluation. He denies any chest pain, shortness of breath or heart palpitation. He has no GI bleed. CBC/BMP: 12/25/16 0000 PE at Discharge GENERAL: NAD SKIN: Warm and dry. HEAD: Normocephalic. EYES: No scleral icterus. No injection or drainage. NECK: Supple, trachea midline. No JVD or lymphadenopathy. CARDIOVASCULAR: Regular rate and rhythm without murmurs, gallops, or rubs. Dressing over incision site RESPIRATORY: Breath sounds equal bilaterally. No accessory muscle use. GASTROINTESTINAL: Abdomen soft, non-tender, nondistended. MUSCULOSKELETAL: No cyanosis, or edema. BACK: Nontender without obvious deformity. No CVA tenderness. Hospital Course Patient was admitted secondary to Bradycardia, cardiology was consulted and he underwent LHC 12/25/16; normal revasc with patent GUTIERREZ and patent RCA followed by Single-chamber permanent pacemaker insertion 12/28/16. Beta yelitza and Latanoprost eye drops were held. Norvasc was starting to achieve normotensive state. All electrolyte abnormality including hypokalemia were replaced accordingly. DVT and GI prophylaxis were provided. Prior to discharge, vitals remained stable and patient condition improved. Pt Condition on Discharge: Stable Discharge Disposition: ACLF/INTERMEDIATE Discharge Time: > 30 minutes Discharge Instructions DIET: Follow Instructions for: Heart Healthy Diet Activities you can perform: Regular-No Restrictions Follow up Referrals: Cardiology PCP Follow-up - 2-3 Days New Medications: Amlodipine (Norvasc) 5 Mg Tab 5 MG PO DAILY Blood Pressure Management #30 TAB Continued Medications: B-Complex Vitamins (Vitamin B Complex) 1 Tab Coenzyme Q10 (Ubidecarenone) (Coq-10) 30 Mg Cap 10 MG PO DAILY Furosemide (Furosemide) 20 Mg Tab 20 MG PO DAILY #30 Ref 0 TAB Isosorbide Mononitrate ER (Isosorbide Mononitrate ER) 60 Mg Tab 60 MG PO DAILY Prevent Chest Pain #30 Ref 0 TAB Latanoprost Opth Drops (Latanoprost Opth Drops) 0.005% Drops 1 DROP EACH EYE HS Refrigerate until opened. Glaucoma #2.5 Ref 0 ML Lisinopril (Lisinopril) 20 Mg Tab 20 MG PO DAILY #30 Ref 0 TAB Lovastatin (Lovastatin) 40 Mg Tab 40 MG PO DAILY Cholesterol Management #30 Ref 0 TAB Rivaroxaban (Xarelto) 20 Mg Tab 20 MG PO DAILY Blood Clot Prevention Ref 0 TAB Discontinued Medications: Metoprolol Succinate ER 24 HR (Metoprolol Succinate ER 24 HR) 50 Mg Tab 50 MG PO DAILY #30 Ref 0 TAB Dmitriy Rojas MD December 29, 2016 11:54
--- NOTE | 2016-12-29 16:06 | EKG ---
Date Performed: 12/29/2016 Time Performed: 05:51:00 PTAGE: 86 years EKG: Paced rhythm with underlying atrial fibrillation Compared to prior tracing no significant c hange Abnormal ECG PREVIOUS TRACING : 12/28/2016 14.46 DOCTOR: Gab Edwards Interpretating Date/Time 12/29/2016 16:05:29
--- NOTE | 2016-12-29 16:06 | EKG ---
Date Performed: 12/28/2016 Time Performed: 14:46:48 PTAGE: 86 years EKG: Paced rhythm with underlying atrial fibrillation Compared to the previous tracing pacing is now seen Abnormal ECG PREVIOUS TRACING : 12/23/16 DOCTOR: Gab Edwards Interpretating Date/Time 12/29/2016 16:05:14
--- NOTE | 2016-12-29 17:28 | HHI.PR ---
Subjective Remarks Feeling better Objective Vital Signs Date Time Temp Pulse Resp B/P Pulse Ox O2 Delivery O2 Flow Rate FiO2 12/29/16 16:00 71 12/29/16 15:00 71 12/29/16 15:00 97.6 74 18 140/79 98 12/29/16 14:00 73 12/29/16 13:00 72 12/29/16 12:00 73 12/29/16 11:00 97.9 73 18 136/65 98 12/29/16 11:00 79 12/29/16 10:00 72 12/29/16 09:00 70 12/29/16 08:00 70 12/29/16 07:00 98.1 73 18 147/76 95 12/29/16 07:00 71 12/29/16 06:00 71 12/29/16 05:00 70 12/29/16 04:00 70 12/29/16 03:00 73 12/29/16 03:00 98.9 71 18 134/72 95 12/29/16 02:00 69 12/29/16 01:00 70 12/29/16 00:00 73 12/28/16 23:00 70 12/28/16 23:00 99.5 71 18 151/74 95 12/28/16 22:00 68 12/28/16 21:00 70 12/28/16 20:00 70 12/28/16 19:50 98.8 71 18 141/72 99 12/28/16 19:00 70 12/28/16 18:11 71 I/O 12/28/16 12/28/16 12/28/16 12/29/16 12/29/16 12/29/16 07:00 15:00 23:00 07:00 15:00 23:00 Intake Total 240 ml 1100 ml 650 ml Output Total 450 ml 800 ml 750 ml Balance -210 ml 300 ml -100 ml Intake Oral 240 ml 850 ml 600 ml IV Total 250 ml 50 ml Output Urine Total 450 ml 800 ml 750 ml # Voids 1 # Bowel Movements 0 1 0 Result Diagram: 12/25/16 0000 Imaging Alert, fully oriented lungs: ventilated Heart: S1, S2 regular, no gallop Abdomen: soft, no mass Ext: no edema Current Medications Medications (Trade) Dose Ordered Sig/Khai Route Start Time Stop Time Status Last Admin (NS Flush) 2 ml UNSCH PRN IV FLUSH 12/23/16 13:00 (NS Flush) 2 ml BID IV FLUSH 12/23/16 21:00 12/29/16 08:40 (Tylenol) 650 mg Q4H PRN PO 12/23/16 13:00 (Zofran Inj) 4 mg Q6H PRN IVP 12/23/16 13:00 (Tylenol) 650 mg Q6H PRN PO 12/23/16 13:00 (Narcan Inj) 0.4 mg UNSCH PRN IV 12/23/16 13:00 (Lasix) 20 mg DAILY PO 12/24/16 09:00 12/29/16 08:40 (Imdur) 60 mg DAILY@07 PO 12/24/16 07:00 Hold (Prinivil) 20 mg DAILY PO 12/24/16 09:00 12/29/16 08:39 (Pravachol) 40 mg DAILY PO 12/24/16 09:00 12/29/16 08:40 (Xarelto) 20 mg DAILY PO 12/24/16 09:00 12/29/16 08:40 (Norvasc) 5 mg DAILY PO 12/24/16 16:45 12/29/16 08:40 (Zofran Inj) 4 mg Q4H PRN IV 12/28/16 09:00 (Tylenol-Codeine #3) 1 tab Q4H PRN PO 12/28/16 09:00 12/28/16 21:01 (Tylenol-Codeine #3) 2 tab Q4H PRN PO 12/28/16 09:00 Assessment and Plan Problem List: (1) Bradycardia Status: Acute Plan: SP pacer. V pacing. Doing well Can be DH. Follow up in 3 weeks (2) New onset atrial fibrillation Status: Acute Plan: In afib. BP ok Resume Imdur case discussed with patient Jermaine Junior MD December 29, 2016 17:28
[2016-12-29] MEDS ORDERED: AMLO5 PO (18:27)
== END 2016-12-29 18:58 | DRG 243 ==
LOC: NEPE 10:52 → NEDA 12:59 → HCIN 19:18 → OBSVTOIN 12-24 08:36
PROVIDERS: ADMIT Hospitalist; ATTEND Hospitalist
PROC: 4A023N7 Measurement of Cardiac Sampling and Pressure, Left Heart, Percutaneous Approach (ICD-10-PCS; 2016-12-25)
PROC: B2111ZZ Fluoroscopy of Multiple Coronary Arteries using Low Osmolar Contrast (ICD-10-PCS; 2016-12-25)
PROC: B2131ZZ Fluoroscopy of Multiple Coronary Artery Bypass Grafts using Low Osmolar Contrast (ICD-10-PCS; 2016-12-25)
PROC: B2181ZZ Fluoroscopy of Left Internal Mammary Bypass Graft using Low Osmolar Contrast (ICD-10-PCS; 2016-12-25)
PROC: 02HK3JZ Insertion of Pacemaker Lead into Right Ventricle, Percutaneous Approach (ICD-10-PCS; 2016-12-28)
PROC: 0JH604Z Insertion of Pacemaker, Single Chamber into Chest Subcutaneous Tissue and Fascia, Open Approach (ICD-10-PCS; principal; 2016-12-28 12:30)
DX: R00.1 Bradycardia, unspecified (principal); I25.810 Atherosclerosis of coronary artery bypass graft(s) without angina pectoris; I10 Essential (primary) hypertension; I44.0 Atrioventricular block, first degree; I25.10 Atherosclerotic heart disease of native coronary artery without angina pectoris; I48.91 Unspecified atrial fibrillation; E78.5 Hyperlipidemia, unspecified; E87.6 Hypokalemia; H91.90 Unspecified hearing loss, unspecified ear; K21.9 Gastro-esophageal reflux disease without esophagitis; I25.84 Coronary atherosclerosis due to calcified coronary lesion; M19.90 Unspecified osteoarthritis, unspecified site; Z79.01 Long term (current) use of anticoagulants; Z85.828 Personal history of other malignant neoplasm of skin; Z96.643 Presence of artificial hip joint, bilateral
CPT/HCPCS: 33207; 71010; 80048; 80061; 80076; 80162; 82550; 82552; 83735; 84443; 84484; 85025; 93005; 93306; 93454; 99291; C1769; C1786; C1893; C1898; J0690; J1644; J3370; Q9967

== ENCOUNTER 2017-11-23 06:30 | Day surgery (SDC) | payer OTHER ==
[~2017-11-23] VITALS: Ht 182.9 cm; Wt 83.7 kg
[~2017-11-23 06:30] MED LIST changes: -APIX5 PO; -ASPI81TA11 PO; +COQ-30CA2 PO; -COQ130CA4 PO; -FURO20 PO; +FURO20TA PO; -IMDU60TA PO; +ISOS60TA PO; -KCL10 PO; +LATA0.002 EACH EYE; -LISI-363 PO; +LISI-515 PO; +LOVA40TA PO; -METO50CR PO; -PRAV40 PO; +VITATAB11; -VITATAB11 PO; +XARE20TA PO; -[UNRECOGNIZED DRUG - REMARK]
[2017-11-23] MEDS ORDERED: IOHEXOL 350 MG/ML 100 ML BTL (for Cath Lab) OTHER ONE (06:31)
[2017-11-23 07:04] VITALS: BP 116/76; PULSE 73; RESP 20; TEMP 97.7; O2SAT 98
[2017-11-23] MEDS ORDERED: POTA10TA2 PO (07:04)
[2017-11-23 07:09] LABS: AUTOMATED NEUTROPHIL # 2.5 TH/MM3 (1.8-7.7); BASOPHIL # 0.1 TH/MM3 (0-0.2); BASOPHIL % 1.3 % (0.0-2.0); EOSINOPHIL # 0.2 TH/MM3 (0-0.4); EOSINOPHIL % 3.7 % (0.0-4.0); HEMATOCRIT 34.7 % (39.0-51.0); HEMOGLOBIN 11.4 GM/DL (13.0-17.0); LYMPH % 25.7 % (9.0-44.0); LYMPHOCYTE # 1.1 TH/MM3 (1.0-4.8); MEAN CELL VOLUME 92.6 FL (80.0-100.0); MEAN CORPUSCULAR HEMOGLOBIN 30.5 PG (27.0-34.0); MEAN CORPUSCULAR HGB CONC 32.9 % (32.0-36.0); MEAN PLATELET VOLUME 8.2 FL (7.0-11.0); MONO % 10.5 % (0.0-8.0); MONOCYTE # 0.4 TH/MM3 (0-0.9); NEUT % 58.8 % (16.0-70.0); PLATELET COUNT 139 TH/MM3 (150-450); RED BLOOD COUNT 3.75 MIL/MM3 (4.50-5.90); RED CELL DISTRIBUTION WIDTH 16.6 % (11.6-17.2); WHITE BLOOD COUNT 4.3 TH/MM3 (4.0-11.0)
[2017-11-23] MEDS ORDERED: NS 1000P @30 MLS/HR (KVO) IV SCH (07:15)
[2017-11-23 07:16] LABS: INTERNATIONAL NORMALIZED RATIO 1.2 RATIO; PROTHROMBIN TIME - PATIENT 12.4 SEC (9.8-11.6)
[2017-11-23 07:19] LABS: CALCIUM 8.3 MG/DL (8.5-10.1); CREATININE 0.93 MG/DL (0.60-1.30)
--- NOTE | 2017-11-23 07:32 | EKG ---
Date Performed: 11/23/2017 Time Performed: 07:01:00 PTAGE: 86 years EKG: Atrial fibrillation with frequent PVCs or aberrant ventricular conduction Left bundle branc h block versus ventricular pacemaker Abnormal ECG PREVIOUS TRACING : 12/29/2016 05.51 DOCTOR: Randolph Gross Interpretating Date/Time 11/23/2017 07:31:47
[2017-11-23] MEDS ORDERED: MIDAZOLAM HCL 2 MG/2 ML VIAL ONE (08:26)
[2017-11-23] MEDS ORDERED: HEPARIN-NS/PF FLUSH BAG 2,000 ML IV FLUSH ONE (08:26)
[2017-11-23] MEDS ORDERED: VERAPAMIL HCL 5 MG/2 ML VIAL ONE (08:27)
[2017-11-23] MEDS ORDERED: HEPARIN SODIUM - IV 10,000 UNITS/10 ML VIAL ONE (08:27)
[2017-11-23] MEDS ORDERED: NITROGLYCERIN INJ 5 ML ONE (08:27)
[2017-11-23] MEDS ORDERED: LIDOCAINE HCL 1% PF 30 ML VIAL ONE (08:30)
--- NOTE | 2017-11-23 09:25 | CATHPROC ---
[employer] HIS Report Study Information Study Number Admission Scheduled Start Study Start [id number] Nov 23 2017 6:30AM 11/23/2017 Nov 23 2017 8:19AM [place] [facility] Cardiac Catheterization Admit Source Facility Department Other [facility] Physician and Clinical Staff Initial Wai Judge Administrative Associate Anshul RN, Fabian Recorder Suzan Espinoza,RT(R) (BS) Scrub Laura Hubbard ,RT(R) Procedures Performed Procedure Location (Site) Vessel Name Angiogram LV LV Ventricle Coronary Angiograms LCA Left Coronary Coronary Angiograms RCA Right Coronary Coronary Angiograms GUTIERREZ-LAD Left Coronary L Heart Cath Wire insertion Radial (left) Radial Art. Equipment Time Website Designer Description Size Mfg Part Number Used/Scraped TRANSDUCER, TRUWAVE [id number] 08:28 LIMA ROLDAN * Used W/STOCKCOCK *[id number] *[id number] *[id number] *[id number] WIRE, HYDROSTEER 150CM [id number] 08:58 DAIG[employer] 150CM Used ANGLED GLIDE *[id number] 08:28 MALLINCKRODT SYRINGE, ANGIOMAT 150ML 150ML *[id number] Used 2SUB [employer] CONCEPT DRAPE, RADIAL FEMORAL FULL 08:28 * [id number] *[id number] Used DEVELOPMENT BODY [id number] 08:28 [employer] IND[employer]ES PACK, CCL CUSTOM * Used *[id number] 08:28 [employer] SUPPORT, ARTERIAL ADULT 58901 *[id number] Used [id number] 08:28 MEDLINE PACER PEN, SKIN DUAL W/ RULER * Used *[id number] BAND, RADIAL COMPRESSION TR [id number] 09:15 [employer] 29CM Used LARGE 29 *[id number] SHEATH, FR6 RADIAL PRELUDE 08:28 [employer] FR 6 [id number] Used EASE 11CM [id number] 08:28 [employer] WIRE, EXCHANGE 260CM 3MMJ 260CM Used *[id number] 08:28 NAMIC MANIFOLD, 4 PORT * Used *[id number] 08:28 NYCOMED OMNIPAQUE, 350 MG, 150ML 150ML [id number] Used [id number] 08:28 [employer] BLANKET,WARM AIR CCL * Used *[id number] CATHETER, FR5 OPTITORQUE [id number] 08:50 TERCorebook FR 5 Used RADIAL TIG 4.0 *[id number] Equipment Model, Serial, Lot Number and Expiration Data Description Model Number Serial Number Lot Number Expiration Date CHAPO ALEJANDRE 150CM [id number] 07-15-2020 ANGLED GLIDE History: Allergies Allergy Reaction simvastatin muscle aches History: Risk Factors Family History of Hypertension Dyslipidemia Previous MS Previous Heart Failure Premature CAD Yes Yes No No Yes Prior Valve Prior PCI Prior CABG Prior CABGDate Surgery No No Yes 08/16/1992 Cerebrovascular 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 Diabetes Disease Disease Disease No No No Yes No History: Stress Tests Stress or Imaging Studies Performed No History: Arrhythmias Selection Items Atrial fibrillation Labs Hgb (g/dl) Hct (%) WBC (l/cumm) Platelets (thousands) 11.60-17.00 35.00-51.00 4.00-11.00 150.00-450.00 11.4 34.7 4.3 139 Glucose (mg/dl) BUN (mg/dl) Creatinine (mg/dl) BUN:Creatinine (1:x) 74.00-106.00 7.00-18.00 0.50-1.30 10.00-20.00 85 21 0.9 23.3 Na (meq/l) K (meq/l) 136.00-145.00 3.50-5.10 141 3.6 INR (PTT:PT) 0.90-1.10 1.2 CPK-MB (ng/ML) 0.50-3.60 Not Drawn Medication Medication Total Dose (Bolus/Oral) Medication Total Dosage/Unit 1% XYLOCAINE 1 mL FENTANYL 50 mcg OXYGEN 2 l/min RADIAL COCKTAIL 1 units VERSED 1 mg Medications (Bolus/Oral) Medication Time Given Dosage/Unit Administered By Reason 1% XYLOCAINE 11/23/2017 8:51:45 AM 1 mL Wai Adame 1 mL 1% XYLOCAINE given in lab by Wai Adame in Left Radial via Subcutaneous. VERSED 11/23/2017 8:53:54 AM 1 mg Fabian Landers RN 1 mg VERSED given in lab by Fabian Landers RN in Left Antecubital via Peripheral IV. FENTANYL 11/23/2017 8:54:06 AM 50 mcg Fabian Landers RN 50 mcg FENTANYL given in lab by Fabian Landers RN in Left Antecubital via Peripheral IV. Ntg 200mcg Verapamil 2.5mg Heparin RADIAL COCKTAIL 11/23/2017 8:55:42 AM 1 units Wai Adame 2500U 1 units RADIAL COCKTAIL given in lab by Wai Adame in Left Radial via Radial. Reason: Ntg 200mcg Ve rapamil 2.5mg Heparin 2500U. OXYGEN 11/23/2017 8:58:14 AM 2 l/min Wai Adame 2 l/min OXYGEN given in lab by Wai Adame via Nasal. Medication (Drip) Medication Time Given Dosage/Unit Concentration/Unit Diluent (ml) Solution IV Solutions 11/23/2017 8:18:51 AM 0 mL (IV) 500 NaCl .9 IV Solutions given in lab by Fabian Landers RN in Left Antecubital via Peripheral IV. Pump/Drip Flow = 30 ml/hr using NaCl .9. Initial Case Assessment Cardiovascular HR Rhythm NIBP 75 irr 124/92 Edema Present Skin color Skin None Normal Warm Dry Circulatory - Right Pulses Dorsalis Pedis Femoral 1 3 Scale (0,1,2,3,4,d) Circulatory - Left Pulses Dorsalis Pedis Femoral 1 3 Scale (0,1,2,3,4,d) Circulatory - Lower Extremities Color Lower Right Color Lower Left Normal Normal Neurological State Oriented to time-place- Alert Moves all extremities person Respiration - General Respiration Rate SpO2 (%) (B/min) 20 98 Chronological Log Time Study Chronological Log 8:18:35 Patient arrived via Bed. 8:18:36 Patient Name, D.O.B, / Armband Verified By R.N. 8:18:36 Consent signed by the physician and the patient and verified by the [facility] staff. 8:18:37 Pre-op and post- op instructions given; patient acknowledges understanding of instructions. 8:18:38 Verbal Stimulation=2 Physical Stimulation=2 Airway=2 Respiration=2 TOTAL=8. (0=absent, 1=stratton ited, 2=present) 8:18:40 Presedation assessment performed by [facility] RN. 8:18:42 Allens test performed on the left radial and ulnar artery. 8:18:45 Patient has been NPO for More than 6Hrs. 8:18:46 Skin Breakdown none per pt 8:18:47 Patient Warmer Placed on the Table. 8:18:48 Siri Prominences Protected 8:18:50 A # 20 IV was noted in the Antecubital (left). Grade = 0 IV Solutions given in lab by Fabian Landers RN in Left Antecubital via Peripheral IV. Pump/Drip Fl ow = 30 ml/hr using NaCl 8:18:51 .9. 8:18:51 History and physical on the chart or being dictated. Assessment: Initial Case, HR=75 BPM, Rhythm=irr, EILK=187/92 mmhg, Edema=None, Color=Normal, Ski n = Warm, Dry Right Pulses: Gurvinder Ped=1, Femoral=3 Left Pulses: Gurvinder Ped=1, Femoral=3, Radial=2 8:18:52 Lower Right Extremities: Color=Normal Lower Left Extremities: Color=Normal Neurological: State=Alert, Ox3, LEI Respiration: Resp=20 B/min, SpO2=98 % Vitals capture started with the following parameters, Patient=Adult, Interval=5 min, Initial Pre txjbb=362 mmHg, 8:25:00 Deflation Rate=5 mmHg, Cuff placed on Unknown 8:25:39 HR=82 bpm, OPAH=299/92 mmhg, SpO2=97.0 %, Resp=27 B/min, Pain=0, Daniela=10, Noel=2 8:30:36 HR=74 bpm, QGYA=863/77 mmhg, SpO2=96.0 %, Resp=24 B/min, Pain=0, Daniela=10, Neol=2 8:32:40 Reference ECG taken 8:33:45 Left radial and right groin prepped with 2% chlorhexidine, and draped after a 3 min. waiting time. 8:35:37 HR=73 bpm, MRYY=096/64 mmhg, SpO2=93.0 %, Resp=24 B/min, Pain=0, Daniela=10, Noel=2 8:40:38 HR=75 bpm, FFGR=067/73 mmhg, SpO2=97.0 %, Resp=23 B/min, Pain=0, Daniela=10, Noel=2 8:41:59 MD paged 8:42:32 Pressure channel 1 zeroed. 8:44:45 MD responded 8:45:37 HR=72 bpm, FBIW=805/69 mmhg, SpO2=91.0 %, Resp=27 B/min, Pain=0, Daniela=10, Noel=2 8:48:03 MD arrived Time Out. Correct patient, correct procedure, correct physician, power injector not loaded with contrast with surgical 8:50:29 team present. Time Out Concurred by MD and individual staff in procedure. 8:50:36 HR=82 bpm, TLLM=686/77 mmhg, SpO2=94.0 %, Resp=26 B/min, Pain=0, Daniela=10, Noel=2 8:50:45 Case Start 8:51:45 1 mL 1% XYLOCAINE given in lab by Wai Adame in Left Radial via Subcutaneous. 8:53:54 1 mg VERSED given in lab by Fabian Landers RN in Left Antecubital via Peripheral IV. 8:54:06 50 mcg FENTANYL given in lab by Fabian Landers RN in Left Antecubital via Peripheral IV. 8:54:54 Access site was left Radial Artery. A SHEATH, FR6 RADIAL PRELUDE EASE 11CM FR 6 was advanced into the Radial (left) using the Percut aneous 8:55:11 technique. 8:55:39 HR=72 bpm, UEXG=869/65 mmhg, SpO2=91.0 %, Resp=16 B/min, Pain=0, Daniela=10, Noel=2 1 units RADIAL COCKTAIL given in lab by Wai Adame in Left Radial via Radial. Reason: Ntg 200m cg Verapamil 2.5mg 8:55:42 Heparin 2500U. A JL 4.0 INFINITI CATHETER FR 6 was advanced over a wire. OMNIPAQUE, 350 MG, 150ML 150ML was use d for 8:56:12 injections. 8:57:57 A WIRE, HYDROSTEER 150CM ANGLED GLIDE 150CM was inserted via Radial (left). 8:58:14 2 l/min OXYGEN given in lab by Wai Adame via Nasal. 9:00:23 Wire removed 9:00:40 HR=21 bpm, FIHH=358/51 mmhg, SpO2=92.0 %, Resp=16 B/min, Pain=0, Daniela=10, Noel=2 9:01:28 The LCA was injected and visualized at various angles. OMNIPAQUE, 350 MG, 150ML 150ML used. Recorded Pressure: Ao, HR=21, Condition=Condition 1 9:02:02 (Aorta) Ao 103/49/73 After removing the current catheter a 3DRC INFINITI CATHETER FR 6 was advanced over a WIRE, EXCH BASHIR 260CM 9:02:17 3MMJ 260CM. 9:04:56 The RCA was injected and visualized at various angles. OMNIPAQUE, 350 MG, 150ML 150ML used. Recorded Pressure: Ao, HR=84, Condition=Condition 1 9:05:05 (Aorta) Ao 103/63/81 9:05:35 HR=89 bpm, VVAI=804/73 mmhg, Resp=18 B/min, Pain=0, Daniela=10, Noel=2 After removing the current catheter a PIGTAIL STR INFINITI CATHETER FR 6 was advanced over a WIR E, EXCHANGE 9:05:35 260CM 3MMJ 260CM. Recorded Pressure: LV, HR=84, Condition=Condition 1 9:07:17 (Left Ventricle) LV 107/5/10 9:09:13 The LV was injected at 12 cc/sec for a total of 42. OMNIPAQUE, 350 MG, 150ML 150ML used. Recorded Pressure: LV, Ao, HR=92, Condition=Condition 1 9:09:57 (Left Ventricle) LV 105/8/12, (Aorta) Ao 102/53/75 After removing the current catheter a 3DRC INFINITI CATHETER FR 6 was advanced over a WIRE, EXCH BASHIR 260CM 9:10:20 3MMJ 260CM. 9:10:34 HR=81 bpm, ETGY=825/78 mmhg, SpO2=98 %, Resp=23 B/min, Pain=0, Daniela=10, Noel=2 9:13:07 The GUTIERREZ-LAD was injected and visualized at various angles. OMNIPAQUE, 350 MG, 150ML 150ML u sed. 9:14:12 Catheter was removed 9:15:30 Case End 9:15:37 HR=85 bpm, AUTE=938/68 mmhg, SpO2=98.0 %, Resp=29 B/min, Pain=0, Daniela=10, Noel=2 9:18:37 Catheter(s) removed without difficulty Radial Compression Device Used. 10 mLs of air placed in BAND, RADIAL COMPRESSION TR LARGE 29 29C M. Affected 9:18:39 hand 94 % O2 saturation. 9:19:08 No case complications noted. 9:19:16 Bedside Report will be given. 9:19:19 A Left Heart Cath was performed. 9:20:38 HR=90 bpm, LCNQ=269/76 mmhg, SpO2=99.0 %, Resp=27 B/min, Pain=0, Daniela=10, Noel=2 9:23:54 Vitals capture stopped. 9:26:58 [facility] - Contrast Media Used In Study Contrast Total Opened (mL) Total Used (mL) Total Wasted (mL) Omnipaque 90 90 0 End Study - Maximum Contrast Load Max Contrast Load (mL) 464.9 End Study - Radiation Exposure Fluoro Time (minutes) 5.5 End Study - Sheaths Sheaths Pulled By Sheath Hold Time (min) Laura Hubbard End Study - Patient Disposition Complications Transferred To Interventional Outcome No [facility] Holding No attempt made
--- NOTE | 2017-11-23 09:52 | MA ---
cc: Wai Adame MD, Alan S MD DATE: 11/23/2017 PROCEDURE: Left heart catheterization, selective coronary and graft angiography, left ventriculography. PROCEDURE NOTES: The patient was brought to the cardiac catheterization laboratory in a fasting state after having signed informed consent. The left radial region was prepped and draped as per policy and anesthetized with 1% lidocaine. Arterial access was obtained via the left radial artery and a 6-Australian sheath placed. Coronary arteriography was performed using 6-Australian Hattie, left 4.0 and right progressive catheters. The left internal mammary artery was engaged with the progressive right catheter. Left ventriculography was done using a standard 6-Australian pigtail. There were no apparent, immediate complications. A radial artery compression band was applied to his wrist at the end of the case to achieve good hemostasis. HEMODYNAMIC DATA: Left ventricle 105 with an end-diastolic pressure of 12. Aorta 102/53 with a mean of 75. There was no significant transvalvular aortic gradient on pullback of the pigtail catheter. CORONARY ARTERIOGRAPHY: The left main is probably diffusely diseased. There is likely at least 90% distal stenosis. The left anterior descending appears to be totally occluded at its origin. The left circumflex is totally occluded at its origin. There may be a small ramus intermedius, which has 50% ostial stenosis. The right coronary artery is a very large superdominant vessel, which is diffusely diseased, overall to a mild extent up to 10% severity diffusely. A number of vessels arising from the distal right coronary supply the inferior and posterolateral [place]. One of these branches, which is small, may have up to 60-70% ostial stenosis. Another very large posterolateral branch has 60% distal stenosis. LEFT VENTRICULOGRAPHY: Contrast injection of the left ventricle reveals no definite segmental wall motion abnormalities. Ejection fraction is estimated at 55%. There is moderate mitral regurgitation. GRAFT ANGIOGRAPHY: The only graft known to be patent is a left internal mammary artery to the LAD, which is widely patent. The [place] LAD distal to the anastomosis site is very small in caliber and diffusely diseased. There may be as much as 60% distal stenosis. Two very small diagonals are seen arising from the mid to distal LAD, the more distal of which has 80% ostial stenosis. CONCLUSIONS: 1. Moderate to severe three-vessel coronary artery disease. 2. Right superdominant system. 3. Patent left internal mammary artery to the left anterior descending. No other grafts are patent. 4. Normal left ventricular function with estimated ejection fraction of 55%. 5. Probably at most moderate mitral regurgitation. MD ENOC Moses/RICHAR , 09:27 AM , 09:51 AM SD
== END 2017-11-23 14:00 ==
LOC: HCAT 06:30 → HDIC 06:30 → HCAT 14:00
PROVIDERS: ATTEND Internal Medicine Cardiovascular Disease
DX: I25.10 Atherosclerotic heart disease of native coronary artery without angina pectoris (principal); I34.0 Nonrheumatic mitral (valve) insufficiency; I48.91 Unspecified atrial fibrillation; I48.92 Unspecified atrial flutter; I50.9 Heart failure, unspecified; I10 Essential (primary) hypertension; I49.1 Atrial premature depolarization; I49.3 Ventricular premature depolarization; I44.0 Atrioventricular block, first degree; I73.9 Peripheral vascular disease, unspecified; Z95.0 Presence of cardiac pacemaker
CPT/HCPCS: 80048; 85025; 85610; 85730; 93005; 93459; 99152; 99153; C1769; J1644; J2250; J3010; Q9967